=== PATIENT | male | born 1980 | race Caucasian/White ===

== ENCOUNTER 2017-03-14 12:02 | Emergency (ER) | payer OTHER ==
[~2017-03-14] VITALS: Ht 182.9 cm; Wt 99.8 kg
[~2017-03-14 12:02] MED LIST: INSU100C4 SUBCUT; INSU100V10 SQ; LISI10TA5 PO; METF850T2 PO
[2017-03-14] MEDS ORDERED: ATOR20TA PO (12:17)
[2017-03-14] MEDS ORDERED: INSU100V10 SQ (12:17)
[2017-03-14] MEDS ORDERED: RIVA10TA PO (12:17)
[2017-03-14] MEDS ORDERED: INSU100I4 SQ (12:17)
--- NOTE | 2017-03-14 12:33 | NUR ---
PT WAS EVALUATED BY DR MACHADO. PT WAS D/C TO HOME. D/C INSTRUCTIONS GIVEN TO THE PT. NO S/S OF ACUTE DISTRESS AT THE TIME OF DISCHARGE..
[2017-03-14 12:36] VITALS: BP 124/81
== END 2017-03-14 12:37 | disposition home or self-care (01) ==
LOC: ER 12:02
DX: S01.21XA Laceration without foreign body of nose, initial encounter (principal); I10 Essential (primary) hypertension; E11.9 Type 2 diabetes mellitus without complications; Z79.01 Long term (current) use of anticoagulants; Z88.0 Allergy status to penicillin; Z88.6 Allergy status to analgesic agent; Z88.8 Allergy status to other drugs, medicaments and biological substances; Z79.4 Long term (current) use of insulin; W18.30XA Fall on same level, unspecified, initial encounter; Y93.89 Activity, other specified; Y99.8 Other external cause status; Y92.89 Other specified places as the place of occurrence of the external cause
CPT/HCPCS: 12011; 99283; A4663

== ENCOUNTER 2017-05-19 00:46 | Emergency (ER) | payer BC, OTHER ==
[~2017-05-19] VITALS: Ht 182.9 cm; Wt 97.5 kg
[~2017-05-19 00:46] MED LIST changes: +ATOR20TA PO; +INSU100I4 SQ; +RIVA10TA PO
--- NOTE | 2017-05-19 01:15 | NUR ---
Pt biba for severe LLQ abd pain with N/V. Pt has significant medical history including multiple surgeries to the abd. Pt has continous medication pump for pain management of chronic diagnosis'. Refer to triage note for further medical history. Pt has noted scare to R side of abd. Hypoactive bowel sounds, abd tender to palpation LLQ. Pt ST on the monitor and diaphortic. Pt sts he is currently being treated for a PE and DVT. Lungs CTA, resp even and unlabored. LLE with DVT tender to palpation. Dr. Dewey at bedside for MSE, awaiting further orders.
[2017-05-19] MEDS ORDERED: ENOX40DI SQ (01:20)
[2017-05-19] MEDS ORDERED: LIRA0.6P2 SQ (01:20)
[2017-05-19] MEDS ORDERED: ATOR40TA PO (01:20)
[2017-05-19] MEDS ORDERED: HYDROMORPHONE 1 MG/1 ML DISP.SYRIN IV ONE ×2 (01:30→03:45)
[2017-05-19] MEDS ORDERED: ONDANSETRON IV *ER 4 MG/2 ML VIAL IV ONE (01:30)
[2017-05-19 01:49] LABS: BASOPHILS % (AUTO) 0.7 % (0.0-2.0); EOSINOPHILS # (AUTO) 0.1 K/uL (0.0-0.7); EOSINOPHILS % (AUTO) 0.8 % (0.0-7.0); HEMOGLOBIN 15.4 G/DL (14.0-18.0); LYMPHOCYTES # (AUTO) 2.2 K/UL (0.8-4.8); LYMPHOCYTES % (AUTO) 33.6 % (20.5-51.5); MEAN CORPUSCULAR HEMOGLOBIN 28.8 UUG (27.0-31.0); MEAN CORPUSCULAR HGB CONC 33 g/dL (32.0-37.0); MEAN CORPUSCULAR VOLUME 86.2 FL (82.0-92.0); MONOCYTES # (AUTO) 0.5 K/UL (0.1-1.30); MONOCYTES % (AUTO) 8.5 % (0.0-11.0); NEUTROPHILS # (AUTO) 3.6 K/UL (1.8-8.9); NEUTROPHILS % (AUTO) 56.4 % (38.5-71.5); PLATELET COUNT (AUTO) 265 K/UL (150-450); RED BLOOD CELL COUNT(AUTO) 5.34 MIL/UL (4.7-6.1); WHITE BLOOD COUNT (AUTO) 6.4 K/UL (4.0-11.2)
[2017-05-19] MEDS ORDERED: HYDROMORPHONE 1 MG/1 ML DISP.SYRIN ONE ×2 (01:54→04:06)
[2017-05-19] MEDS ORDERED: ONDANSETRON 4 MG/2 ML VIAL ONE (01:54)
[2017-05-19] MEDS ORDERED: diphenhydrAMINE 50 MG/1 ML VIAL IV ONE (02:00)
--- NOTE | 2017-05-19 02:08 | NUR ---
Pt seen by MD. SLOAN established, labs drawn and sent. Pt medicated for discomfort, will monitor for effects of medication. Pt resting in position of comfort for self.
[2017-05-19] MEDS ORDERED: diphenhydrAMINE 50 MG/1 ML VIAL ONE (02:11)
[2017-05-19 02:16] LABS: BILIRUBIN,DIRECT 0.1 mg/dL (0.0-0.2); BILIRUBIN,TOTAL 0.5 mg/dL (0.2-1.0); CREATININE 0.9 mg/dL (0.6-1.3); POTASSIUM 4.3 mmol/L (3.5-5.1); TOTAL PROTEIN, SERUM 7.5 g/dL (6.4-8.2)
--- NOTE | 2017-05-19 02:45 | NUR ---
Pt requested more pain medication, sts no change with previous dose. Dr. Dewey notified. Pt to CT via w/c
--- NOTE | 2017-05-19 02:58 | NUR ---
Pt returned from CT via w/c. Pt repositioned for comfort. Requesting to speak with Dr. Dewey. Dr. Dewey notified.
--- NOTE | 2017-05-19 03:36 | NUR ---
Dr. Dewey at bedside speaking with pt
--- NOTE | 2017-05-19 04:10 | NUR ---
Pt medicated for discomfort, with little relief. Pt stable for discharge per MD. IV dc'd, catheter intact, drsg applied. No problems noted to site. Pt given ACI. Pt verbalized understanding of dc instructions. Pt ambulated out of er with steady gait to wait for ride home.
[2017-05-19 05:26] VITALS: BP 118/57
== END 2017-05-19 04:10 | disposition home or self-care (01) ==
LOC: ER 00:51
DX: R10.9 Unspecified abdominal pain (principal); E11.65 Type 2 diabetes mellitus with hyperglycemia; I10 Essential (primary) hypertension; Z86.718 Personal history of other venous thrombosis and embolism; Z79.4 Long term (current) use of insulin; Z88.0 Allergy status to penicillin; Z88.6 Allergy status to analgesic agent; E78.5 Hyperlipidemia, unspecified
CPT/HCPCS: 36415; 74176; 80048; 80076; 83690; 85025; 96374; 96375; 96376; 99285; A4663; J1170 ×2; J1200; J2405; J7040

== ENCOUNTER 2017-07-10 18:19 | Emergency (ER) | payer BC ==
[~2017-07-10] VITALS: Ht 182.9 cm; Wt 102.5 kg
[~2017-07-10 18:19] MED LIST changes: -ATOR20TA PO; +ATOR40TA PO; +ENOX40DI SQ; -INSU100I4 SQ; -INSU100V10 SQ; +LIRA0.6P2 SQ; -METF850T2 PO; -RIVA10TA PO
[2017-07-10] MEDS ORDERED: INSU100I24 SQ (19:12)
[2017-07-10 19:27] LABS: BASOPHILS % (AUTO) 0.6 % (0.0-2.0); EOSINOPHILS % (AUTO) 0.6 % (0.0-7.0); HEMATOCRIT 46.6 % (40-50); HEMOGLOBIN 15.6 G/DL (14.0-18.0); LYMPHOCYTES # (AUTO) 2.7 K/UL (0.8-4.8); LYMPHOCYTES % (AUTO) 45.1 % (20.5-51.5); MEAN CORPUSCULAR HEMOGLOBIN 28.5 UUG (27.0-31.0); MEAN CORPUSCULAR HGB CONC 34 g/dL (32.0-37.0); MEAN CORPUSCULAR VOLUME 84.8 FL (82.0-92.0); MONOCYTES # (AUTO) 0.6 K/UL (0.1-1.30); NEUTROPHILS # (AUTO) 2.5 K/UL (1.8-8.9); NEUTROPHILS % (AUTO) 43.7 % (38.5-71.5); PLATELET COUNT (AUTO) 295 K/UL (150-450); RED BLOOD CELL COUNT(AUTO) 5.49 MIL/UL (4.7-6.1); WHITE BLOOD COUNT (AUTO) 5.8 K/UL (4.0-11.2)
[2017-07-10 19:41] LABS: CREATININE 0.7 mg/dL (0.6-1.3)
[2017-07-10 19:53] LABS: BILIRUBIN,DIRECT 0.1 mg/dL (0.0-0.2); BILIRUBIN,TOTAL 0.6 mg/dL (0.2-1.0); TOTAL PROTEIN, SERUM 7.8 g/dL (6.4-8.2)
[2017-07-10 20:52] VITALS: BP 135/87
== END 2017-07-10 20:53 | disposition home or self-care (01) ==
LOC: ER 18:20
DX: K51.90 Ulcerative colitis, unspecified, without complications (principal); E11.65 Type 2 diabetes mellitus with hyperglycemia; I10 Essential (primary) hypertension; E78.5 Hyperlipidemia, unspecified; Z88.0 Allergy status to penicillin; Z86.718 Personal history of other venous thrombosis and embolism; Z79.01 Long term (current) use of anticoagulants; G89.4 Chronic pain syndrome; Z79.4 Long term (current) use of insulin
CPT/HCPCS: 36415; 83605; 83690; 85025; 85651; 86140; 87040; A4663; J1170; J2405; J7030; Q0163

== ENCOUNTER 2017-07-12 18:41 | Emergency (ER) | payer BC ==
[~2017-07-12] VITALS: Ht 182.9 cm; Wt 103.4 kg
[~2017-07-12 18:41] MED LIST changes: +INSU100I24 SQ
[2017-07-12 20:50] LABS: BASOPHILS % (AUTO) 0.3 % (0.0-2.0); EOSINOPHILS % (AUTO) 0.4 % (0.0-7.0); HEMATOCRIT 47.8 % (40-50); HEMOGLOBIN 16.2 G/DL (14.0-18.0); LYMPHOCYTES # (AUTO) 1.8 K/UL (0.8-4.8); LYMPHOCYTES % (AUTO) 19.9 % (20.5-51.5); MEAN CORPUSCULAR HEMOGLOBIN 28.9 UUG (27.0-31.0); MEAN CORPUSCULAR HGB CONC 34 g/dL (32.0-37.0); MONOCYTES # (AUTO) 0.6 K/UL (0.1-1.30); MONOCYTES % (AUTO) 6.9 % (0.0-11.0); NEUTROPHILS # (AUTO) 6.5 K/UL (1.8-8.9); NEUTROPHILS % (AUTO) 72.5 % (38.5-71.5); PLATELET COUNT (AUTO) 276 K/UL (150-450); RED BLOOD CELL COUNT(AUTO) 5.62 MIL/UL (4.7-6.1); WHITE BLOOD COUNT (AUTO) 8.9 K/UL (4.0-11.2)
[2017-07-12 20:55] LABS: CREATININE 0.8 mg/dL (0.6-1.3); POTASSIUM 3.4 mmol/L (3.5-5.1)
[2017-07-12 21:01] LABS: BILIRUBIN,DIRECT 0.1 mg/dL (0.0-0.2); BILIRUBIN,TOTAL 0.5 mg/dL (0.2-1.0); TOTAL PROTEIN, SERUM 8.3 g/dL (6.4-8.2)
--- NOTE | 2017-07-12 23:35 | NUR ---
Patient requested to be discharge. States "I feel alot better now."
--- NOTE | 2017-07-12 23:50 | NUR ---
Patient D/C'ed home. ERMD gave verbal ACI. Answered all question
[2017-07-13 00:13] VITALS: BP 142/65
[2017-07-13] MEDS ORDERED: HYDR8TAB2 PO (19:07)
== END 2017-07-13 00:01 | disposition home or self-care (01) ==
LOC: ER 18:42
DX: G89.4 Chronic pain syndrome (principal); K51.90 Ulcerative colitis, unspecified, without complications; F11.20 Opioid dependence, uncomplicated; I10 Essential (primary) hypertension; E11.9 Type 2 diabetes mellitus without complications; Z79.4 Long term (current) use of insulin; Z88.0 Allergy status to penicillin; Z86.718 Personal history of other venous thrombosis and embolism
CPT/HCPCS: 36415; 70030-TC; 71010; 83690; 85025; 93005; A4663; J1170; J1200; J2405; J3490; J7042; J7050; Q9967

== ENCOUNTER 2017-07-13 18:26 | Emergency (ER) | payer BC ==
[~2017-07-13] VITALS: Ht 190.5 cm; Wt 101.2 kg
[2017-07-13] MEDS ORDERED: HYDR8TAB2 PO (19:07)
[2017-07-13 20:10] LABS: *BILIRUBIN,URIN NEGATIVE (NEGATIVE); *BLOOD, URINE NEGATIVE (NEGATIVE); *CLARITY,URINE CLEAR (CLEAR); *COLOR,URINE YELLOW (YELLOW); *KETONES,URINE NEGATIVE (NEGATIVE); *PROTEIN,URINE NEGATIVE (NEGATIVE); *UROBILINOGEN,URINE 0.2 E.U./dl (NORMAL); LEUKOCYTE ESTERASE ,URINE NEGATIVE (NEGATIVE); NITRITE, URINE NEGATIVE (NEGATIVE)
[2017-07-13 20:15] LABS: SQUAMOUS EPITHELIAL CELL,UR FEW /HPF (NONE SEEN); UGLUCOSE 2+ (NEGATIVE); WBC,URINE 0-3 /HPF (0-3)
--- NOTE | 2017-07-13 20:27 | NUR ---
Patient discharged to home in stable conditon. Written and verbal after care instructions given. Patient verbalizes understanding of instructions.
[2017-07-13 20:29] VITALS: BP 142/86
== END 2017-07-13 20:30 | disposition home or self-care (01) ==
LOC: ER 18:27
DX: K51.90 Ulcerative colitis, unspecified, without complications (principal); I10 Essential (primary) hypertension; E11.9 Type 2 diabetes mellitus without complications; Z88.0 Allergy status to penicillin; Z79.4 Long term (current) use of insulin; F11.20 Opioid dependence, uncomplicated; Z86.718 Personal history of other venous thrombosis and embolism
CPT/HCPCS: A4663; Q0162

== ENCOUNTER 2017-07-24 16:06 | Emergency (ER) | payer BC ==
[~2017-07-24] VITALS: Ht 188 cm; Wt 99.8 kg
[~2017-07-24 16:06] MED LIST changes: +HYDR8TAB2 PO
[2017-07-24] MEDS ORDERED: CIPR-262 PO (17:26)
[2017-07-24] MEDS ORDERED: METR500T PO (17:26)
--- NOTE | 2017-07-24 18:19 | NUR ---
PT AWAITING FOR MD DIAS
[2017-07-24] MEDS ORDERED: ONDANSETRON 4 MG/2 ML VIAL IV ONE (18:30)
[2017-07-24] MEDS ORDERED: IV NORMAL SALINE 1000 ML BAG IV ONE (18:30)
[2017-07-24] MEDS ORDERED: HYDROMORPHONE 1 MG/1 ML DISP.SYRIN IV ONE ×3 (18:30→21:00)
[2017-07-24] MEDS ORDERED: HYDROMORPHONE 2 MG/1 ML DISP.SYRIN ONE ×3 (18:40→21:07)
[2017-07-24] MEDS ORDERED: ONDANSETRON 4 MG/2 ML VIAL ONE ×3 (18:40→21:07)
[2017-07-24] MEDS ORDERED: diphenhydrAMINE 50 MG/1 ML VIAL IV ONE ×2 (18:45→19:30)
--- NOTE | 2017-07-24 18:45 | NUR ---
CXR/MEDS ADMINISTERED, 1L 0.9NS INFUSING. PT POSITIONED FORM COMFORT.
[2017-07-24] MEDS ORDERED: diphenhydrAMINE 50 MG/1 ML VIAL ONE ×2 (18:51→19:42)
--- NOTE | 2017-07-24 19:05 | NUR ---
[facility] THE BLOOD IV PLACED/MEDS ADMINISTERED/EKG DONE/CXR DONE. SBAR REPORT TO PM SHIFT.
--- NOTE | 2017-07-24 19:11 | NUR ---
SBAR REPORT TO DIANA HARRINGTON.
[2017-07-24] MEDS ORDERED: ONDANSETRON IV *ER 4 MG/2 ML VIAL IV ONE ×2 (19:15→21:00)
[2017-07-24 19:19] LABS: BILIRUBIN,DIRECT 0.2 mg/dL (0.0-0.2); BILIRUBIN,TOTAL 0.9 mg/dL (0.2-1.0); CREATININE 0.8 mg/dL (0.6-1.3); POTASSIUM 4.2 mmol/L (3.5-5.1); TOTAL PROTEIN, SERUM 8.3 g/dL (6.4-8.2)
[2017-07-24] MEDS ORDERED: INSULIN REGULAR, HUMAN 1,000 UNITS/10 ML VIAL IV ONE (19:45)
[2017-07-24 19:53] LABS: BASOPHILS # (AUTO) 0.1 K/uL (0.0-8.0); BASOPHILS % (AUTO) 1.3 % (0.0-2.0); EOSINOPHILS # (AUTO) 0.1 K/uL (0.0-0.7); EOSINOPHILS % (AUTO) 0.6 % (0.0-7.0); HEMATOCRIT 50.5 % (40-50); HEMOGLOBIN 16.4 G/DL (14.0-18.0); LYMPHOCYTES # (AUTO) 3.5 K/UL (0.8-4.8); LYMPHOCYTES % (AUTO) 40.3 % (20.5-51.5); MEAN CORPUSCULAR HEMOGLOBIN 27.6 UUG (27.0-31.0); MEAN CORPUSCULAR HGB CONC 33 g/dL (32.0-37.0); MONOCYTES # (AUTO) 0.7 K/UL (0.1-1.30); MONOCYTES % (AUTO) 7.7 % (0.0-11.0); NEUTROPHILS # (AUTO) 4.2 K/UL (1.8-8.9); NEUTROPHILS % (AUTO) 50.1 % (38.5-71.5); RED BLOOD CELL COUNT(AUTO) 5.95 MIL/UL (4.7-6.1); WHITE BLOOD COUNT (AUTO) 8.6 K/UL (4.0-11.2)
[2017-07-24 19:54] LABS: PLATELET COUNT (AUTO) 185 K/UL (150-450)
[2017-07-24 19:55] LABS: BAND % (MANUAL) 2 % (0-10); LYMPHOCYTES % (MANUAL) 33 % (20-40); MONOCYTES % (MANUAL) 10 % (2-10); NEUTROPHILS % (MANUAL) 55 % (42-75)
[2017-07-24] MEDS ORDERED: INSULIN REGULAR, HUMAN 300 UNIT/3 ML VIAL ONE (19:56)
--- NOTE | 2017-07-24 19:59 | NUR ---
Patient tolerated dinner with no N/V
--- NOTE | 2017-07-24 21:11 | NUR ---
right wrist hep lock infiltrated.IV removed. Catheter intact and site benign. Pressure and 4x4 gauze applied to site. No bleeding noted.
--- NOTE | 2017-07-24 21:34 | NUR ---
IV removed on left arm. Catheter intact and site benign. Pressure and 4x4 gauze applied to site. No bleeding noted.
[2017-07-24 21:35] VITALS: BP 129/88
--- NOTE | 2017-07-24 21:36 | NUR ---
Patient requesting to be D/C'ed. Pain is 3/10. Ok to Blood sugar to be managed at home
--- NOTE | 2017-07-24 21:39 | NUR ---
Patient discharged to home in stable conditon. Written and verbal after care instructions given. Patient verbalizes understanding of instructions. Walked out of ER with steady gait no distress noted
[2017-07-24 21:47] LABS: *BILIRUBIN,URIN NEGATIVE (NEGATIVE); *BLOOD, URINE NEGATIVE (NEGATIVE); *CLARITY,URINE CLEAR (CLEAR); *COLOR,URINE YELLOW (YELLOW); *KETONES,URINE 1+ (NEGATIVE); *PROTEIN,URINE NEGATIVE (NEGATIVE); *UROBILINOGEN,URINE 0.2 E.U./dl (NORMAL); LEUKOCYTE ESTERASE ,URINE NEGATIVE (NEGATIVE); NITRITE, URINE NEGATIVE (NEGATIVE); PH,URINE 5.5 (5.0-8.0); UGLUCOSE 2+ (NEGATIVE)
[2017-07-24 21:57] LABS: BACTERIA,URINE FEW /HPF (NONE SEEN); RBC,URINE NONE SEEN /HPF (0-3); SQUAMOUS EPITHELIAL CELL,UR NONE SEEN /HPF (NONE SEEN); WBC,URINE 0-3 /HPF (0-3)
== END 2017-07-24 21:40 | disposition home or self-care (01) ==
LOC: ER 16:08
DX: G89.4 Chronic pain syndrome (principal); K51.90 Ulcerative colitis, unspecified, without complications; I10 Essential (primary) hypertension; E11.9 Type 2 diabetes mellitus without complications; Z86.718 Personal history of other venous thrombosis and embolism; Z79.4 Long term (current) use of insulin; Z88.0 Allergy status to penicillin
CPT/HCPCS: 36415; 70030-TC; 71010; 83690; 85025; 93005; A4663; J1170; J1200; J1815; J2405; J7030

== ENCOUNTER 2017-08-01 22:25 | Emergency (ER) | payer BC ==
[~2017-08-01 22:25] MED LIST changes: +CIPR-262 PO; -HYDR8TAB2 PO; +METR500T PO
--- NOTE | 2017-08-01 23:46 | NUR ---
PATIENT WAS CALLED SEVERAL TIMES IN 1HR SPAN. PATIENT WAS NOT PRESENT. PATIENT WAS NOT SEEN OR TRAIGED
== END 2017-08-01 23:48 | disposition left against medical advice (07) ==
LOC: ER 22:25
DX: Z53.21 Procedure and treatment not carried out due to patient leaving prior to being seen by health care provider (principal)

== ENCOUNTER 2017-08-30 09:11 | Emergency (ER) | payer BC ==
[~2017-08-30] VITALS: Ht 182.9 cm; Wt 103.4 kg
[2017-08-30] MEDS ORDERED: ONDANSETRON 4 MG/2 ML VIAL IV ONE (09:15)
[2017-08-30] MEDS ORDERED: HYDROMORPHONE 1 MG/1 ML DISP.SYRIN IV ONE ×2 (09:15→11:00)
--- NOTE | 2017-08-30 09:20 | NUR ---
PT WAS SEEN BY WITH NEW ORDERS.
--- NOTE | 2017-08-30 09:52 | NUR ---
PT STATES HE TOOK UBER MODE OF TRANSPORTATION
[2017-08-30] MEDS ORDERED: ONDANSETRON 4 MG/2 ML VIAL ONE (09:56)
[2017-08-30] MEDS ORDERED: HYDROMORPHONE 2 MG/1 ML DISP.SYRIN ONE ×2 (09:56→11:15)
[2017-08-30 10:00] LABS: BASOPHILS % (AUTO) 0.6 % (0.0-2.0); EOSINOPHILS % (AUTO) 0.6 % (0.0-7.0); HEMATOCRIT 44.7 % (36.7-47.1); HEMOGLOBIN 15.2 g/dL (12.5-16.3); LYMPHOCYTES # (AUTO) 1.8 K/uL (20.0-40.0); LYMPHOCYTES % (AUTO) 37.5 % (20.5-51.5); MEAN CORPUSCULAR HEMOGLOBIN 28.9 uug (23.8-33.4); MEAN CORPUSCULAR HGB CONC 34 g/dL (32.5-36.3); MEAN CORPUSCULAR VOLUME 84.7 fL (73.0-96.2); MONOCYTES # (AUTO) 0.4 K/uL (2.0-10.0); MONOCYTES % (AUTO) 7.7 % (0.0-11.0); NEUTROPHILS # (AUTO) 2.6 K/uL (1.8-8.9); NEUTROPHILS % (AUTO) 53.6 % (38.5-71.5); PLATELET COUNT (AUTO) 250 K/uL (152-348); RED BLOOD CELL COUNT(AUTO) 5.28 MIL/uL (4.06-5.63); WHITE BLOOD COUNT (AUTO) 4.9 K/uL (3.6-10.2)
[2017-08-30] MEDS ORDERED: diphenhydrAMINE 50 MG CAPSULE PO ONE (10:00)
[2017-08-30] MEDS ORDERED: diphenhydrAMINE 50 MG/1 ML VIAL IM ONE (10:00)
--- NOTE | 2017-08-30 10:03 | NUR ---
IV DILAUDID AND PO BENADRIL GIVEN PT.WAS INSTRACTED NOT TO DRIVE.
[2017-08-30 10:05] LABS: CREATININE 0.7 mg/dL (0.6-1.3); POTASSIUM 4.2 mmol/L (3.5-5.1)
[2017-08-30 10:11] LABS: BILIRUBIN,DIRECT 0.1 mg/dL (0.0-0.2); BILIRUBIN,TOTAL 0.5 mg/dL (0.2-1.0); TOTAL PROTEIN, SERUM 7.4 g/dL (6.4-8.2)
[2017-08-30] MEDS ORDERED: diphenhydrAMINE 50 MG CAPSULE ONE (10:13)
[2017-08-30] MEDS ORDERED: INSULIN REGULAR, HUMAN 1,000 UNITS/10 ML VIAL SUBCUT ONE (10:45)
[2017-08-30] MEDS ORDERED: INSULIN REGULAR, HUMAN 300 UNIT/3 ML VIAL ONE (11:06)
--- NOTE | 2017-08-30 11:24 | NUR ---
PT ASK FOR SNACKS,PROVIDED,NO S/S OF DISTRESS.
[2017-08-30 11:46] VITALS: BP 122/84
== END 2017-08-30 11:50 | disposition home or self-care (01) ==
LOC: ER 09:11
DX: G89.29 Other chronic pain (principal); R10.32 Left lower quadrant pain; F11.20 Opioid dependence, uncomplicated; E11.9 Type 2 diabetes mellitus without complications; I10 Essential (primary) hypertension; K51.90 Ulcerative colitis, unspecified, without complications; Z79.4 Long term (current) use of insulin; Z86.718 Personal history of other venous thrombosis and embolism; Z88.0 Allergy status to penicillin; Z88.5 Allergy status to narcotic agent; Z90.49 Acquired absence of other specified parts of digestive tract
CPT/HCPCS: 36415; 80048; 80076; 83690; 85025; 85651; 86140; 96372; 96374; 96375; 96376; 99284; A4663; J1170 ×2; J1815; J2405; J7030; Q0163

== ENCOUNTER 2017-10-20 00:31 | Emergency (ER) | payer BC ==
[~2017-10-20] VITALS: Ht 182.9 cm; Wt 103.4 kg
[2017-10-20] MEDS ORDERED: LISINOPRIL 10 MG TABLET (00:48)
[2017-10-20] MEDS ORDERED: IV NORMAL SALINE 1000 ML BAG IV ONE (01:00)
[2017-10-20] MEDS ORDERED: ONDANSETRON 4 MG/2 ML VIAL IV ONE (01:00)
[2017-10-20] MEDS ORDERED: HYDROMORPHONE 1 MG/1 ML DISP.SYRIN IV ONE ×2 (01:00→02:00)
[2017-10-20] MEDS ORDERED: diphenhydrAMINE 50 MG CAPSULE PO ONE (01:15)
[2017-10-20] MEDS ORDERED: ONDANSETRON 4 MG/2 ML VIAL ONE (01:16)
[2017-10-20] MEDS ORDERED: HYDROMORPHONE 1 MG/1 ML DISP.SYRIN ONE ×2 (01:16→02:05)
[2017-10-20 01:17] LABS: BASOPHILS % (AUTO) 0.4 % (0.0-2.0); EOSINOPHILS % (AUTO) 0.5 % (0.0-7.0); HEMATOCRIT 43.8 % (36.7-47.1); HEMOGLOBIN 15.1 g/dL (12.5-16.3); LYMPHOCYTES # (AUTO) 1.4 K/uL (20.0-40.0); LYMPHOCYTES % (AUTO) 23.3 % (20.5-51.5); MEAN CORPUSCULAR HEMOGLOBIN 29.7 uug (23.8-33.4); MEAN CORPUSCULAR HGB CONC 35 g/dL (32.5-36.3); MEAN CORPUSCULAR VOLUME 86.1 fL (73.0-96.2); MONOCYTES # (AUTO) 0.4 K/uL (2.0-10.0); MONOCYTES % (AUTO) 6.7 % (0.0-11.0); NEUTROPHILS # (AUTO) 4.1 K/uL (1.8-8.9); NEUTROPHILS % (AUTO) 69.1 % (38.5-71.5); PLATELET COUNT (AUTO) 238 K/uL (152-348); RED BLOOD CELL COUNT(AUTO) 5.09 MIL/uL (4.06-5.63)
[2017-10-20] MEDS ORDERED: diphenhydrAMINE 25 MG CAP PO ONE (01:28)
[2017-10-20 01:35] LABS: BILIRUBIN,DIRECT 0.1 mg/dL (0.0-0.2); BILIRUBIN,TOTAL 0.4 mg/dL (0.2-1.0); TOTAL PROTEIN, SERUM 8.4 g/dL (6.4-8.2)
[2017-10-20] MEDS ORDERED: INSULIN REGULAR, HUMAN 1,000 UNITS/10 ML VIAL SUBCUT ONE (02:30)
[2017-10-20] MEDS ORDERED: INSULIN REGULAR, HUMAN 300 UNIT/3 ML VIAL ONE (02:45)
--- NOTE | 2017-10-20 02:52 | NUR ---
Patient discharged to home in stable conditon. Written and verbal after care instructions given. Patient verbalizes understanding of instructions. PATIENT LEFT WITH STABLE GAIT, ACCOMPANIED BY FIANCE. PATIENT STATES FIANCE WILL DRIVE.
[2017-10-20 02:53] VITALS: BP 148/91
== END 2017-10-20 02:55 | disposition home or self-care (01) ==
LOC: ER 00:33
DX: G89.4 Chronic pain syndrome (principal); K51.90 Ulcerative colitis, unspecified, without complications; E11.65 Type 2 diabetes mellitus with hyperglycemia; I10 Essential (primary) hypertension; Z79.4 Long term (current) use of insulin; Z86.718 Personal history of other venous thrombosis and embolism; Z88.0 Allergy status to penicillin; Z88.5 Allergy status to narcotic agent
CPT/HCPCS: 36415; 80048; 80076; 83690; 85025; 96361; 96372; 96374; 96375; 96376; 99284; A4663; J1170 ×2; J1815; J2405; J7030; Q0163

== ENCOUNTER 2017-11-02 02:01 | Emergency (ER) | payer BC ==
[~2017-11-02] VITALS: Ht 182.9 cm; Wt 103.0 kg
[~2017-11-02 02:01] MED LIST changes: -CIPR-262 PO; +LISINOPRIL 10 MG TABLET; -METR500T PO
--- NOTE | 2017-11-02 02:18 | NUR ---
Pt c/o LUQ and LLQ pain and tenderness, cramping, 7-8, along with n/v since yesterday AM. Pt denies CP, SOB, dizziness, no other complaints, no distress noted.
--- NOTE | 2017-11-02 02:26 | NUR ---
Pt left after seeing MD. Menjivar.
== END 2017-11-02 02:29 | disposition left against medical advice (07) ==
LOC: ER 02:03
DX: R10.9 Unspecified abdominal pain (principal); R11.10 Vomiting, unspecified; Z79.4 Long term (current) use of insulin; Z88.0 Allergy status to penicillin; Z88.5 Allergy status to narcotic agent; E11.9 Type 2 diabetes mellitus without complications; I10 Essential (primary) hypertension; Z86.718 Personal history of other venous thrombosis and embolism; Z90.49 Acquired absence of other specified parts of digestive tract
CPT/HCPCS: A4663

== ENCOUNTER 2017-12-19 20:53 | Emergency (ER) | payer BC ==
[~2017-12-19] VITALS: Ht 182.9 cm; Wt 105.7 kg
[2017-12-19] MEDS ORDERED: TRESIBA SQ (21:11)
[2017-12-19] MEDS ORDERED: HUM100IN SQ (21:11)
[2017-12-19] MEDS ORDERED: VICTOZA SQ (21:11)
[2017-12-19] MEDS ORDERED: LISI10TA5 PO (21:11)
[2017-12-19] MEDS ORDERED: ENOX40DI SQ (21:11)
[2017-12-19 22:05] LABS: BASOPHILS % (AUTO) 0.7 % (0.0-2.0); HEMOGLOBIN 15.6 g/dL (12.5-16.3); LYMPHOCYTES % (AUTO) 43.2 % (20.5-51.5); MEAN CORPUSCULAR HEMOGLOBIN 29.4 uug (23.8-33.4); MEAN CORPUSCULAR HGB CONC 35 g/dL (32.5-36.3); MEAN CORPUSCULAR VOLUME 84.6 fL (73.0-96.2); MONOCYTES # (AUTO) 0.4 K/uL (2.0-10.0); MONOCYTES % (AUTO) 8.4 % (0.0-11.0); NEUTROPHILS # (AUTO) 2.1 K/uL (1.8-8.9); NEUTROPHILS % (AUTO) 46.7 % (38.5-71.5); PLATELET COUNT (AUTO) 233 K/uL (152-348); RED BLOOD CELL COUNT(AUTO) 5.32 MIL/uL (4.06-5.63); WHITE BLOOD COUNT (AUTO) 4.5 K/uL (3.6-10.2)
[2017-12-19 22:16] LABS: POTASSIUM 4.2 mmol/L (3.5-5.1)
[2017-12-19 22:33] LABS: BILIRUBIN,DIRECT 0.1 mg/dL (0.0-0.2); BILIRUBIN,TOTAL 0.4 mg/dL (0.2-1.0)
[2017-12-19] MEDS ORDERED: IOHEXOL 350 100 ML INFUS..BTL ONE (22:33)
[2017-12-19] MEDS ORDERED: NORMAL SALINE FLUSH 10 ML DISP.SYRIN ONE (22:33)
[2017-12-19] MEDS ORDERED: IV NORMAL SALINE 100 ML ONE (22:33)
[2017-12-19] MEDS: IV NORMAL SALINE 1000 ML BAG IV ONE (22:45)
[2017-12-19] MEDS ORDERED: DEXAMETHASONE SOD PHOSPHATE 4 MG INJ ONE (22:48)
[2017-12-19] MEDS ORDERED: diphenhydrAMINE 50 MG/1 ML VIAL ONE (22:48)
[2017-12-19] MEDS: DEXAMETHASONE SOD PHOSPHATE 4 MG INJ IV ONE (22:53)
[2017-12-19] MEDS: diphenhydrAMINE 50 MG/1 ML VIAL IV ONE (22:54)
--- NOTE | 2017-12-19 22:55 | NUR ---
PT IN ROUTE TO CT
[2017-12-20] MEDS ORDERED: HYDROMORPHONE 1 MG/1 ML DISP.SYRIN IV ONE (00:45)
[2017-12-20] MEDS ORDERED: ONDANSETRON 4 MG/2 ML VIAL ONE (00:46)
[2017-12-20] MEDS ORDERED: HYDROMORPHONE 4 MG/1 ML DISP.SYRIN ONE (00:48)
[2017-12-20] MEDS: ONDANSETRON IV *ER 4 MG/2 ML VIAL IV ONE (01:01)
[2017-12-20] MEDS: HYDROMORPHONE 1 MG/1 ML DISP.SYRIN IV ONE (01:02)
--- NOTE | 2017-12-20 01:04 | NUR ---
Patient discharged to home in stable conditon. Written and verbal after care instructions given. Patient verbalizes understanding of instructions.
== END 2017-12-20 01:05 | disposition home or self-care (01) ==
LOC: ER 20:55
DX: R07.89 Other chest pain (principal); G89.4 Chronic pain syndrome; F11.23 Opioid dependence with withdrawal; I10 Essential (primary) hypertension; Z90.49 Acquired absence of other specified parts of digestive tract; Z88.0 Allergy status to penicillin; Z88.1 Allergy status to other antibiotic agents; Z88.5 Allergy status to narcotic agent; Z88.8 Allergy status to other drugs, medicaments and biological substances; Z79.4 Long term (current) use of insulin; Z79.899 Other long term (current) drug therapy
CPT/HCPCS: 36415; 70030-TC; 71275; 85025; 85730; 93005; A4663; J1100; J1170; J1200; J2405; J3490; J7030; Q9967

== ENCOUNTER 2018-02-22 15:54 | Emergency (ER) | payer BC ==
[~2018-02-22] VITALS: Ht 182.9 cm; Wt 106.6 kg
[~2018-02-22 15:54] MED LIST changes: +HUM100IN SQ; -INSU100C4 SUBCUT; -INSU100I24 SQ; -LISINOPRIL 10 MG TABLET; +TRESIBA SQ
--- NOTE | 2018-02-22 16:08 | NUR ---
Shashank zhu in [facility] - 02/22/18 at 1608 by SEAN is at bedside doing his MSE.
[2018-02-22] MEDS ORDERED: DULA0.75 SQ (16:12)
[2018-02-22] MEDS ORDERED: IV NORMAL SALINE 1000 ML BAG IV ONE (17:45)
[2018-02-22] MEDS ORDERED: HYDROMORPHONE 1 MG/1 ML DISP.SYRIN IV ONE (17:45)
[2018-02-22] MEDS ORDERED: ONDANSETRON 4 MG/2 ML VIAL IV ONE (17:45)
[2018-02-22] MEDS ORDERED: HYDROMORPHONE 2 MG/1 ML DISP.SYRIN ONE (17:53)
[2018-02-22] MEDS ORDERED: ONDANSETRON 4 MG/2 ML VIAL ONE (17:53)
[2018-02-22 18:20] LABS: BASOPHILS % (AUTO) 0.7 % (0.0-2.0); EOSINOPHILS % (AUTO) 0.5 % (0.0-7.0); HEMATOCRIT 47.1 % (36.7-47.1); HEMOGLOBIN 16.2 g/dL (12.5-16.3); LYMPHOCYTES # (AUTO) 2.4 K/uL (20.0-40.0); LYMPHOCYTES % (AUTO) 37.6 % (20.5-51.5); MEAN CORPUSCULAR HEMOGLOBIN 29.4 uug (23.8-33.4); MEAN CORPUSCULAR HGB CONC 34 g/dL (32.5-36.3); MEAN CORPUSCULAR VOLUME 85.5 fL (73.0-96.2); MONOCYTES # (AUTO) 0.5 K/uL (2.0-10.0); MONOCYTES % (AUTO) 7.2 % (0.0-11.0); NEUTROPHILS # (AUTO) 3.5 K/uL (1.8-8.9); PLATELET COUNT (AUTO) 224 K/uL (152-348); WHITE BLOOD COUNT (AUTO) 6.5 K/uL (3.6-10.2)
[2018-02-22 18:40] LABS: CREATININE 0.7 mg/dL (0.6-1.3)
[2018-02-22 18:44] LABS: BILIRUBIN,DIRECT 0.2 mg/dL (0.0-0.2); BILIRUBIN,TOTAL 0.7 mg/dL (0.2-1.0); TOTAL PROTEIN, SERUM 8.1 g/dL (6.4-8.2)
[2018-02-22] MEDS ORDERED: diphenhydrAMINE 50 MG/1 ML VIAL IV ONE (18:45)
[2018-02-22] MEDS ORDERED: diphenhydrAMINE 50 MG/1 ML VIAL ONE (18:53)
--- NOTE | 2018-02-22 19:07 | NUR ---
REPORT GIVE TO BRENDA HARRINGTON.
--- NOTE | 2018-02-22 19:12 | NUR ---
REPORT TAKEN FROM TIAGO. ASSUMING PT CARE AT THIS TIME.
--- NOTE | 2018-02-22 19:43 | NUR ---
PT REFUSES CT SCAN, AGREES TO CHEST XRAY. XRAY AT PT BEDSIDE.
--- NOTE | 2018-02-22 20:27 | NUR ---
Patient does not wish to proceed with medical care recommended by Dr. PEÑA. Patient given information related to possible complications, up to and including , which could occur as a result of leaving the hospital at this time. Patient verbalizes understanding of risks involved due to leaving against medical advice. Patient has signed AMA form. IV reoved, w/ catheter intact. Pressure applied. No bleeding noted at site. Pt took all personal belonings.
[2018-02-22 20:29] VITALS: BP 146/91
== END 2018-02-22 20:30 | disposition home or self-care (01) ==
LOC: ER 15:55
DX: K51.90 Ulcerative colitis, unspecified, without complications (principal); E11.9 Type 2 diabetes mellitus without complications; G89.29 Other chronic pain; I10 Essential (primary) hypertension; Z79.4 Long term (current) use of insulin; Z88.0 Allergy status to penicillin; Z88.5 Allergy status to narcotic agent; Z90.49 Acquired absence of other specified parts of digestive tract
CPT/HCPCS: 36415; 70030-TC; 71045; 83605; 83690; 85025; 85730; 87040; 93005; A4663; J1170; J1200; J2405; J7030

== ENCOUNTER 2018-04-07 11:00 | Emergency (ER) | payer BC ==
[~2018-04-07] VITALS: Ht 182.9 cm; Wt 106.6 kg
[~2018-04-07 11:00] MED LIST changes: +DULA0.75 SQ
== END 2018-04-07 11:18 | disposition left against medical advice (07) ==
LOC: ER 11:00
DX: Z53.21 Procedure and treatment not carried out due to patient leaving prior to being seen by health care provider (principal)
CPT/HCPCS: A4663

== ENCOUNTER 2019-05-05 12:41 | Emergency (ER) | payer BC ==
[~2019-05-05] VITALS: Ht 182.9 cm; Wt 104.8 kg
--- NOTE | 2019-05-05 13:54 | NUR ---
seen by Dr Iqbal. orders received
[2019-05-05] MEDS ORDERED: ONDANSETRON 4 MG/2 ML VIAL IV ONE (14:00)
[2019-05-05] MEDS ORDERED: HYDROMORPHONE 1 MG/1 ML DISP.SYRIN IV ONE ×2 (14:00→15:45)
[2019-05-05] MEDS ORDERED: IV NORMAL SALINE 1000 ML BAG IV ONE (14:00)
--- NOTE | 2019-05-05 14:58 | NUR ---
ct abdomen done. back to room IV #22 inserted via right hand IV NS started and infused via right hand. blood drawn for labs
[2019-05-05] MEDS ORDERED: diphenhydrAMINE 50 MG/1 ML VIAL IV ONE (15:00)
[2019-05-05] MEDS ORDERED: diphenhydrAMINE 50 MG/1 ML VIAL ONE (15:04)
[2019-05-05] MEDS ORDERED: HYDROMORPHONE 1 MG/1 ML DISP.SYRIN ONE ×2 (15:05→15:55)
[2019-05-05] MEDS ORDERED: ONDANSETRON 4 MG/2 ML VIAL ONE (15:06)
[2019-05-05 15:12] LABS: BASOPHILS % (AUTO) 0.4 % (0.0-2.0); EOSINOPHILS % (AUTO) 0.2 % (0.0-7.0); HEMOGLOBIN 15.1 g/dL (12.5-16.3); LYMPHOCYTES # (AUTO) 1.4 K/uL (20.0-40.0); LYMPHOCYTES % (AUTO) 22.6 % (20.5-51.5); MEAN CORPUSCULAR HEMOGLOBIN 28.4 uug (23.8-33.4); MEAN CORPUSCULAR HGB CONC 33 g/dL (32.5-36.3); MEAN CORPUSCULAR VOLUME 86.4 fL (73.0-96.2); MONOCYTES # (AUTO) 0.4 K/uL (2.0-10.0); MONOCYTES % (AUTO) 5.8 % (0.0-11.0); NEUTROPHILS # (AUTO) 4.3 K/uL (1.8-8.9); PLATELET COUNT (AUTO) 283 K/uL (152-348); RED BLOOD CELL COUNT(AUTO) 5.33 MIL/uL (4.06-5.63)
[2019-05-05 15:46] LABS: CARBON DIOXIDE 24 mmol/L (21-32); CHLORIDE 101 mmol/L (98-107); CREATININE 0.6 mg/dL (0.6-1.3); GLUCOSE 274 mg/dL (74-106); UREA NITROGEN, BLOOD 10 mg/dL (7-18)
--- NOTE | 2019-05-05 15:57 | NUR ---
medicated with 1 mg IV Dilaudid
[2019-05-05 16:02] LABS: ALANINE AMINOTRANSFERASE 19 U/L (16-63); ALKALINE PHOSPHATASE 63 U/L (50-136); ASPARTATE AMINOTRANSFERASE 7 U/L (15-37); BILIRUBIN,DIRECT 0.1 mg/dL (0.0-0.2); BILIRUBIN,TOTAL 0.7 mg/dL (0.2-1.0); TOTAL PROTEIN, SERUM 7.6 g/dL (6.4-8.2)
--- NOTE | 2019-05-05 16:12 | NUR ---
exitcare given. discharged home
[2019-05-05 16:13] VITALS: BP 136/99
[2019-05-05 16:27] LABS: LIPASE 154 U/L (73-393)
== END 2019-05-05 16:17 | disposition home or self-care (01) ==
LOC: ER 12:41
DX: R10.32 Left lower quadrant pain (principal); R11.10 Vomiting, unspecified; I10 Essential (primary) hypertension; E11.9 Type 2 diabetes mellitus without complications; G89.29 Other chronic pain; M54.9 Dorsalgia, unspecified; Z88.0 Allergy status to penicillin; Z88.5 Allergy status to narcotic agent; Z88.8 Allergy status to other drugs, medicaments and biological substances; Z90.49 Acquired absence of other specified parts of digestive tract; Z79.899 Other long term (current) drug therapy
CPT/HCPCS: 36415; 74176; 80048; 80076; 83690; 85025; 96361; 96374; 96375; 96376; 99284; J1170 ×2; J1200; J2405; A4663

== ENCOUNTER 2019-05-13 14:03 | Emergency (ER) | payer BC ==
[~2019-05-13] VITALS: Ht 182.9 cm; Wt 104.8 kg
[2019-05-13] MEDS ORDERED: ONDANSETRON 4 MG/2 ML VIAL ONE (14:35)
[2019-05-13] MEDS ORDERED: HYDROMORPHONE 1 MG/1 ML DISP.SYRIN ONE ×2 (14:35→15:51)
[2019-05-13 14:49] LABS: BASOPHILS % (AUTO) 0.6 % (0.0-2.0); EOSINOPHILS % (AUTO) 0.2 % (0.0-7.0); HEMATOCRIT 44.4 % (36.7-47.1); HEMOGLOBIN 14.5 g/dL (12.5-16.3); LYMPHOCYTES # (AUTO) 1.3 K/uL (20.0-40.0); LYMPHOCYTES % (AUTO) 22.9 % (20.5-51.5); MEAN CORPUSCULAR HEMOGLOBIN 28.5 uug (23.8-33.4); MEAN CORPUSCULAR HGB CONC 33 g/dL (32.5-36.3); MONOCYTES # (AUTO) 0.3 K/uL (2.0-10.0); MONOCYTES % (AUTO) 5.7 % (0.0-11.0); NEUTROPHILS % (AUTO) 70.6 % (38.5-71.5); PLATELET COUNT (AUTO) 253 K/uL (152-348); WHITE BLOOD COUNT (AUTO) 5.7 K/uL (3.6-10.2)
[2019-05-13] MEDS: HYDROMORPHONE 1 MG/1 ML DISP.SYRIN IV ONE ×2 (14:49→15:51)
[2019-05-13] MEDS: IV NORMAL SALINE 1000 ML BAG IV ONE (14:52)
[2019-05-13] MEDS: ONDANSETRON 4 MG/2 ML VIAL IV ONE (14:53)
[2019-05-13] MEDS: diphenhydrAMINE 25 MG CAP PO ONE (14:56)
[2019-05-13] MEDS ORDERED: diphenhydrAMINE 25 MG CAP PO ONE (14:58)
[2019-05-13 15:01] LABS: BILIRUBIN,DIRECT 0.2 mg/dL (0.0-0.2); BILIRUBIN,TOTAL 0.8 mg/dL (0.2-1.0); POTASSIUM 4.5 mmol/L (3.5-5.1); TOTAL PROTEIN, SERUM 7.9 g/dL (6.4-8.2)
--- NOTE | 2019-05-13 15:44 | NUR ---
JIM BASS AT BEDSIDE FOR PT UPDATE.
[2019-05-13] MEDS ORDERED: INSULIN REGULAR, HUMAN 300 UNIT/3 ML VIAL ONE (16:03)
[2019-05-13] MEDS: INSULIN REGULAR, HUMAN 300 UNIT/3 ML VIAL SQ ONE (16:06)
--- NOTE | 2019-05-13 16:10 | NUR ---
Patient discharged to home in stable conditon. Written and verbal after care instructions given. Patient verbalizes understanding of instructions. ALL BELONGINGS W/ PT. PT SELF-AMBULATED W/O DIFFICULTY. 20G IV ACCESS REMOVED PRIOR TO D/C - INNER CANNULA INTACT. PT STATES HE WILL TAKE UBER HOME.
[2019-05-13 16:12] VITALS: BP 112/66
== END 2019-05-13 16:13 | disposition home or self-care (01) ==
LOC: ER 14:03
DX: K51.90 Ulcerative colitis, unspecified, without complications (principal); G89.4 Chronic pain syndrome; R10.32 Left lower quadrant pain; E11.65 Type 2 diabetes mellitus with hyperglycemia; I10 Essential (primary) hypertension; Z88.0 Allergy status to penicillin; Z88.5 Allergy status to narcotic agent; Z88.8 Allergy status to other drugs, medicaments and biological substances; Z79.899 Other long term (current) drug therapy
CPT/HCPCS: 36415; 80048; 80076; 82962; 83690; 85025; 96361; 96372; 96374; 96375; 96376; 99283; J1170 ×2; J1815; J2405; Q0163; A4663; J7030

== ENCOUNTER 2019-06-16 13:54 | Emergency (ER) | payer BC ==
[~2019-06-16] VITALS: Ht 182.9 cm; Wt 104.3 kg
[2019-06-16] MEDS ORDERED: diphenhydrAMINE 50 MG/1 ML VIAL IM ONE (14:30)
[2019-06-16] MEDS ORDERED: ONDANSETRON ODT 4 MG TAB.RAPDIS SL ONE (14:30)
[2019-06-16] MEDS ORDERED: HYDROMORPHONE 1 MG/1 ML DISP.SYRIN IM ONE (14:30)
[2019-06-16] MEDS ORDERED: HYDROMORPHONE 2 MG/1 ML DISP.SYRIN ONE (14:44)
[2019-06-16] MEDS ORDERED: ONDANSETRON ODT 4 MG TAB.RAPDIS ONE (14:44)
[2019-06-16] MEDS ORDERED: diphenhydrAMINE 50 MG/1 ML VIAL ONE (14:44)
[2019-06-16] MEDS ORDERED: DIAZEPAM 5 MG TABLET ONE (15:21)
[2019-06-16] MEDS ORDERED: DIAZEPAM 2 MG TABLET PO ONE (15:30)
--- NOTE | 2019-06-16 15:33 | NUR ---
Patient discharged to home in stable conditon. Written and verbal after care instructions given. Patient verbalizes understanding of instructions. Stressed follow up with pmd.
== END 2019-06-16 15:36 | disposition home or self-care (01) ==
LOC: ER 13:54
DX: G89.4 Chronic pain syndrome (principal); M79.604 Pain in right leg; I10 Essential (primary) hypertension; E11.9 Type 2 diabetes mellitus without complications; Z90.49 Acquired absence of other specified parts of digestive tract; Z88.0 Allergy status to penicillin; Z88.5 Allergy status to narcotic agent; Z88.8 Allergy status to other drugs, medicaments and biological substances; Z79.899 Other long term (current) drug therapy; Z79.4 Long term (current) use of insulin
CPT/HCPCS: 96372 ×2; 99283; J1170; J1200; A4663; Q0162

== ENCOUNTER 2019-06-26 23:34 | Emergency (ER) | payer BC ==
[~2019-06-26] VITALS: Ht 182.9 cm; Wt 106.6 kg
--- NOTE | 2019-06-26 23:59 | NUR ---
PATIENT WAS MSE BY DR RIVERA IN ROOM 03A.
[2019-06-27] MEDS ORDERED: HYDROMORPHONE 1 MG/1 ML DISP.SYRIN IV ONE ×2 (00:30→01:30)
[2019-06-27] MEDS ORDERED: diphenhydrAMINE 50 MG/1 ML VIAL IV ONE (00:30)
[2019-06-27] MEDS ORDERED: diphenhydrAMINE 50 MG/1 ML VIAL ONE (00:55)
[2019-06-27] MEDS ORDERED: HYDROMORPHONE 1 MG/1 ML DISP.SYRIN ONE ×2 (00:55→01:44)
[2019-06-27 00:58] LABS: BASOPHILS % (AUTO) 0.3 % (0.0-2.0); EOSINOPHILS # (AUTO) 0.1 K/uL (0.0-0.7); EOSINOPHILS % (AUTO) 0.7 % (0.0-7.0); HEMATOCRIT 34.2 % (36.7-47.1); HEMOGLOBIN 11.8 g/dL (12.5-16.3); LYMPHOCYTES # (AUTO) 2.3 K/uL (20.0-40.0); LYMPHOCYTES % (AUTO) 31.9 % (20.5-51.5); MEAN CORPUSCULAR HEMOGLOBIN 30.5 uug (23.8-33.4); MEAN CORPUSCULAR HGB CONC 35 g/dL (32.5-36.3); MEAN CORPUSCULAR VOLUME 88.3 fL (73.0-96.2); MONOCYTES # (AUTO) 0.5 K/uL (2.0-10.0); MONOCYTES % (AUTO) 6.3 % (0.0-11.0); NEUTROPHILS # (AUTO) 4.4 K/uL (1.8-8.9); NEUTROPHILS % (AUTO) 60.8 % (38.5-71.5); PLATELET COUNT (AUTO) 258 K/uL (152-348); RED BLOOD CELL COUNT(AUTO) 3.87 MIL/uL (4.06-5.63); WHITE BLOOD COUNT (AUTO) 7.2 K/uL (3.6-10.2)
[2019-06-27 01:12] LABS: BILIRUBIN,DIRECT 0.1 mg/dL (0.0-0.2); BILIRUBIN,TOTAL 0.3 mg/dL (0.2-1.0); CREATININE 1.2 mg/dL (0.6-1.3); POTASSIUM 3.5 mmol/L (3.5-5.1); TOTAL PROTEIN, SERUM 6.8 g/dL (6.4-8.2)
--- NOTE | 2019-06-27 01:50 | NUR ---
DR RIVERA MADE PATIENT AWARE OF TEST RESULTS WILL DC HOME.
[2019-06-27 01:55] VITALS: BP 145/95
--- NOTE | 2019-06-27 01:58 | NUR ---
Patient discharged to home in stable conditon. Written and verbal after care instructions given. Patient verbalizes understanding of instructions.
== END 2019-06-27 01:59 | disposition home or self-care (01) ==
LOC: ER 23:39
DX: R10.32 Left lower quadrant pain (principal); R11.10 Vomiting, unspecified; I10 Essential (primary) hypertension; E11.9 Type 2 diabetes mellitus without complications; G89.29 Other chronic pain; M54.9 Dorsalgia, unspecified; Z88.0 Allergy status to penicillin; Z88.5 Allergy status to narcotic agent; Z88.8 Allergy status to other drugs, medicaments and biological substances; Z79.899 Other long term (current) drug therapy; Z90.49 Acquired absence of other specified parts of digestive tract
CPT/HCPCS: 36415; 80048; 80076; 83690; 85025; 96374; 96375; 96376; 99283; J1170 ×2; J1200; A4663

== ENCOUNTER 2019-07-06 16:16 | Emergency (ER) | payer BC ==
[~2019-07-06] VITALS: Ht 182.9 cm; Wt 117.9 kg
--- NOTE | 2019-07-06 16:30 | NUR ---
ADMIT A 39YO MALE IN RM 1A WITH A C/O ABDOMENAL PAIN, N/V . APPEARS VERY DROWSY, ORIENTED TO HIS NAME. SLEEPING INTERMITTENTLY. GIRLFRIEND AT THE BEDSIDE.
--- NOTE | 2019-07-06 17:25 | NUR ---
SEEN AND EXAMNED BY MD WITH NEW ORDER.
--- NOTE | 2019-07-06 17:40 | NUR ---
STARTED AN IV ACCESS FOR IVF ORDERS BUT PT'S VEIN IS VERY DIFFICULT AND SCARRED. ATTEMPTED 3 TIMES BUT NO SUCCESS. MD IS AWARE.
[2019-07-06] MEDS ORDERED: IV NORMAL SALINE 1000 ML BAG IV ONE (17:45)
[2019-07-06 17:57] LABS: BASOPHILS % (AUTO) 0.7 % (0.0-2.0); EOSINOPHILS % (AUTO) 0.8 % (0.0-7.0); HEMATOCRIT 40.9 % (36.7-47.1); HEMOGLOBIN 13.4 g/dL (12.5-16.3); LYMPHOCYTES # (AUTO) 1.9 K/uL (20.0-40.0); LYMPHOCYTES % (AUTO) 34.3 % (20.5-51.5); MEAN CORPUSCULAR HEMOGLOBIN 28.8 uug (23.8-33.4); MEAN CORPUSCULAR HGB CONC 33 g/dL (32.5-36.3); MONOCYTES # (AUTO) 0.4 K/uL (2.0-10.0); MONOCYTES % (AUTO) 6.5 % (0.0-11.0); NEUTROPHILS # (AUTO) 3.3 K/uL (1.8-8.9); NEUTROPHILS % (AUTO) 57.7 % (38.5-71.5); PLATELET COUNT (AUTO) 350 K/uL (152-348); RED BLOOD CELL COUNT(AUTO) 4.65 MIL/uL (4.06-5.63); WHITE BLOOD COUNT (AUTO) 5.7 K/uL (3.6-10.2)
--- NOTE | 2019-07-06 18:05 | NUR ---
PT DECIDED TO WALK OUT AND ELOPED. IS AWARE.
[2019-07-06 18:06] LABS: POTASSIUM 4.1 mmol/L (3.5-5.1)
[2019-07-06 18:11] LABS: BILIRUBIN,DIRECT 0.1 mg/dL (0.0-0.2); BILIRUBIN,TOTAL 0.3 mg/dL (0.2-1.0); TOTAL PROTEIN, SERUM 7.2 g/dL (6.4-8.2)
[2019-07-06] MEDS ORDERED: diphenhydrAMINE 50 MG/1 ML VIAL IM ONE (18:15)
[2019-07-06] MEDS ORDERED: HYDROMORPHONE 1 MG/1 ML DISP.SYRIN IM ONE (18:15)
--- NOTE | 2019-07-06 18:15 | NUR ---
MEDICATION ORDERS NOT GIVEN PT ELOPED AT 1805.
== END 2019-07-06 18:05 | disposition home or self-care (01) ==
LOC: ER 16:19
DX: F11.23 Opioid dependence with withdrawal (principal); E11.65 Type 2 diabetes mellitus with hyperglycemia; I10 Essential (primary) hypertension; G89.29 Other chronic pain; M54.9 Dorsalgia, unspecified; Z88.0 Allergy status to penicillin; Z88.5 Allergy status to narcotic agent; Z88.8 Allergy status to other drugs, medicaments and biological substances; Z79.899 Other long term (current) drug therapy
CPT/HCPCS: 36415; 70030-TC; 83690; 85025; 85730; A4663; J7030

== ENCOUNTER 2019-07-30 14:59 | Inpatient (IN) | payer BC ==
[~2019-07-30] VITALS: Ht 182.9 cm; Wt 104.8 kg
[2019-07-30] MEDS ORDERED: IV NORMAL SALINE 1000 ML BAG IV ONE (15:30)
[2019-07-30] MEDS ORDERED: ONDANSETRON 4 MG/2 ML VIAL IV ONE ×2 (15:30→17:00)
[2019-07-30] MEDS ORDERED: HYDROMORPHONE 1 MG/1 ML DISP.SYRIN IV ONE ×2 (15:30→17:00)
[2019-07-30] MEDS ORDERED: HYDROMORPHONE 2 MG/1 ML DISP.SYRIN ONE ×2 (15:40→16:58)
[2019-07-30] MEDS ORDERED: ONDANSETRON 4 MG/2 ML VIAL ONE ×2 (15:40→16:58)
[2019-07-30] MEDS ORDERED: diphenhydrAMINE 50 MG/1 ML VIAL ONE ×2 (15:41→17:41)
[2019-07-30] MEDS ORDERED: diphenhydrAMINE 50 MG/1 ML VIAL IV ONE (16:00)
[2019-07-30 16:12] LABS: BASOPHILS % (AUTO) 0.4 % (0.0-2.0); EOSINOPHILS % (AUTO) 0.5 % (0.0-7.0); HEMATOCRIT 40.2 % (36.7-47.1); HEMOGLOBIN 13.2 g/dL (12.5-16.3); LYMPHOCYTES % (AUTO) 35.8 % (20.5-51.5); MEAN CORPUSCULAR HEMOGLOBIN 28.2 uug (23.8-33.4); MEAN CORPUSCULAR HGB CONC 33 g/dL (32.5-36.3); MEAN CORPUSCULAR VOLUME 85.8 fL (73.0-96.2); MONOCYTES # (AUTO) 0.4 K/uL (2.0-10.0); MONOCYTES % (AUTO) 7.3 % (0.0-11.0); NEUTROPHILS # (AUTO) 3.1 K/uL (1.8-8.9); PLATELET COUNT (AUTO) 345 K/uL (152-348); RED BLOOD CELL COUNT(AUTO) 4.68 MIL/uL (4.06-5.63); WHITE BLOOD COUNT (AUTO) 5.6 K/uL (3.6-10.2)
[2019-07-30 16:20] LABS: BILIRUBIN,DIRECT 0.1 mg/dL (0.0-0.2); BILIRUBIN,TOTAL 0.4 mg/dL (0.2-1.0); CREATININE 0.9 mg/dL (0.6-1.3); POTASSIUM 3.4 mmol/L (3.5-5.1); TOTAL PROTEIN, SERUM 6.4 g/dL (6.4-8.2)
[2019-07-30] MEDS ORDERED: INSULIN REGULAR, HUMAN 300 UNIT/3 ML VIAL IV ONE (16:30)
[2019-07-30] MEDS ORDERED: INSULIN REGULAR, HUMAN 300 UNIT/3 ML VIAL ONE (16:35)
--- NOTE | 2019-07-30 17:25 | NUR ---
Received report from Parajmit HARRINGTON in ER, awaiting patient arrival on unit.
[2019-07-30] MEDS: diphenhydrAMINE 50 MG/1 ML VIAL IV PRN ×2 (17:39→20:00)
--- NOTE | 2019-07-30 17:56 | NUR ---
report was given to wellness nurse rn. pt was transfered to room #320.
--- NOTE | 2019-07-30 18:21 | NUR ---
Patient arrived on floor, Douglas Gonzales NP made aware. Awaiting admission orders. Patient on air sampling and monitoring. No distress noted, ambulatory. Skin check done, no skin issues. Addendum: 07/30/19 at 1855 by LIBBY CROSS RN Patient refused reglan, states he is not nauseous now and prefers zofran PRN. Douglas Gonzales NP made aware.
[2019-07-30] MEDS ORDERED: Z GUARD REMEDY PASTE 57 GM TUBE TOP PRN (18:30)
[2019-07-30] MEDS ORDERED: MAGNESIUM HYDROXIDE 30 ML LIQUID UDC PO PRN (18:30)
[2019-07-30] MEDS ORDERED: INSULIN REGULAR, HUMAN 300 UNITS/3 ML VIAL SQ PRN (18:30)
[2019-07-30] MEDS ORDERED: DEXTROSE 50% 50 ML DISP.SYRIN IV PRN (18:30)
[2019-07-30] MEDS: METOCLOPRAMIDE HCL 10 MG/2 ML VIAL IV SCH ×2 (18:30→20:00)
[2019-07-30] MEDS ORDERED: ACETAMINOPHEN 325 MG TABLET PO PRN (18:30)
[2019-07-30] MEDS ORDERED: HYDROCODONE/APAP 5-325MG TABLET PO PRN (18:30)
[2019-07-30 18:35] VITALS: BP 128/85
--- NOTE | 2019-07-30 19:15 | NUR ---
Received bedside report from AM nurse regarding admission. Initial admission process to be continued. Initial assessment done, will document accordingly. Patient with complaints of increasing abdominal pain, aware that we are awaiting order verification for his pain medications. Admission orders noted and carried out at this time. Sinus rhythm on tele, not in active distress at this time. Will continue to monitor.
[2019-07-30 20:00] VITALS: BP 103/63
[2019-07-30] MEDS: FAMOTIDINE. 20 MG/2 ML VIAL IV SCH (20:00)
[2019-07-30] MEDS: ATORVASTATIN 40 MG TABLET PO SCH (20:00)
--- NOTE | 2019-07-30 20:00 | NUR ---
Seen and examined by Dr. Inman, see noted. Pain management to be continued as tolerated.
[2019-07-30] MEDS: HYDROMORPHONE 1 MG/1 ML DISP.SYRIN IV PRN (20:01)
[2019-07-30] MEDS: IV NS 1000 ML 1,000 ML IV PRN (20:35)
[2019-07-30] MEDS: BLOOD SUGAR DIAGNOSTIC 1 EACH STRIP VI SCH (21:17)
[2019-07-31] VITALS: BP 117/74
--- NOTE | 2019-07-31 | NUR ---
Patient remains to be on intermittent pain, pain medications effective for 2-3.5 hours. Pain ranges to 8-10/10 and lowers to about 4/5. Goal is being met at this time. Sinus rhythm on tele, but with episode of tachycardia when patient is ambulating to bathroom, but returns to sinus rhythm when back in bed at rest. Will continue to monitor and manage pain, and attend to needs. With good urine output of 900cc. Oral intake of water 700cc.
[2019-07-31] MEDS: HYDROMORPHONE 1 MG/1 ML DISP.SYRIN IV PRN ×3 (00:01→12:08)
[2019-07-31] MEDS: diphenhydrAMINE 50 MG/1 ML VIAL IV PRN ×4 (02:08→20:32)
[2019-07-31 04:00] VITALS: BP 118/75
[2019-07-31] MEDS: METOCLOPRAMIDE HCL 10 MG/2 ML VIAL IV SCH ×3 (06:07→21:23)
[2019-07-31] MEDS: INSULIN REGULAR, HUMAN 300 UNIT/3 ML VIAL SQ PRN ×3 (06:24→16:32)
[2019-07-31] MEDS: BLOOD SUGAR DIAGNOSTIC 1 EACH STRIP VI SCH ×4 (06:25→21:30)
--- NOTE | 2019-07-31 08:00 | NUR ---
Alert, oriented x 4, pleasant. Complaining of abdominal pain scale 8/10. Dilaudid 2 mg given
[2019-07-31] MEDS: FAMOTIDINE. 20 MG/2 ML VIAL IV SCH ×2 (08:03→21:23)
[2019-07-31] MEDS: LISINOPRIL 10 MG TABLET PO SCH (08:04)
[2019-07-31 09:15] LABS: BASOPHILS % (AUTO) 0.9 % (0.0-2.0); EOSINOPHILS # (AUTO) 0.1 K/uL (0.0-0.7); EOSINOPHILS % (AUTO) 1.3 % (0.0-7.0); HEMATOCRIT 40.3 % (36.7-47.1); HEMOGLOBIN 13.2 g/dL (12.5-16.3); LYMPHOCYTES % (AUTO) 41.4 % (20.5-51.5); MEAN CORPUSCULAR HEMOGLOBIN 28.6 uug (23.8-33.4); MEAN CORPUSCULAR HGB CONC 33 g/dL (32.5-36.3); MEAN CORPUSCULAR VOLUME 87.5 fL (73.0-96.2); MONOCYTES # (AUTO) 0.4 K/uL (2.0-10.0); MONOCYTES % (AUTO) 8.9 % (0.0-11.0); NEUTROPHILS # (AUTO) 2.3 K/uL (1.8-8.9); NEUTROPHILS % (AUTO) 47.5 % (38.5-71.5); PLATELET COUNT (AUTO) 313 K/uL (152-348); WHITE BLOOD COUNT (AUTO) 4.9 K/uL (3.6-10.2)
[2019-07-31 09:42] LABS: THYROID STIMULATING HORMONE 1.178 mIU/mL (0.358-3.740)
[2019-07-31 10:08] LABS: CREATININE 0.9 mg/dL (0.6-1.3); MAGNESIUM 1.8 mg/dL (1.8-2.4); PHOSPHOROUS 3.4 mg/dL (2.5-4.9); POTASSIUM 4.2 mmol/L (3.5-5.1)
[2019-07-31] MEDS: IV NS 1000 ML 1,000 ML IV PRN ×2 (10:54→19:20)
[2019-07-31 12:01] VITALS: BP 135/84
[2019-07-31] MEDS ORDERED: HYDROMORPHONE 1 MG/1 ML DISP.SYRIN IV PRN (12:15)
[2019-07-31] MEDS ORDERED: HYDROMORPHONE 2 MG/1 ML DISP.SYRIN IV ONE (12:15)
[2019-07-31] MEDS ORDERED: DEXTROSE 50% 50 ML DISP.SYRIN IV PRN (12:30)
[2019-07-31] MEDS: ENOXAPARIN SODIUM 40 MG/0.4 ML DISP.SYRIN SQ SCH (12:30)
--- NOTE | 2019-07-31 12:30 | NUR ---
Per patient Dilaudid 2 mg IV not effective in relieving pain. With orders from Dr. Inman, dose increased
[2019-07-31 15:46] VITALS: BP 93/43
[2019-07-31] MEDS: HYDROMORPHONE 2 MG/1 ML DISP.SYRIN IV PRN ×2 (16:22→20:32)
--- NOTE | 2019-07-31 18:58 | NUR ---
Patient requesting for Ativan, waiting for doctor's orders. Endorsed for further care
--- NOTE | 2019-07-31 19:15 | NUR ---
Patient awake in bed. Requesting ativan, doctor contacted, awaiting response. AO x 4. IV in right hand patent and in tact. In no distress currently. Will continue to monitor. Safety precautions in place.
[2019-07-31 20:00] VITALS: BP 130/83
[2019-07-31] MEDS: ONDANSETRON 4 MG/2 ML VIAL IV PRN (20:31)
[2019-07-31] MEDS: ATORVASTATIN 40 MG TABLET PO SCH (21:23)
[2019-07-31] MEDS: INSULIN REGULAR, HUMAN 300 UNITS/3 ML VIAL SQ PRN (21:32)
[2019-07-31] MEDS ORDERED: LORAZEPAM 0.5 MG TABLET PO PRN (22:00)
[2019-08-01] MEDS: HYDROMORPHONE 2 MG/1 ML DISP.SYRIN IV PRN ×5 (00:33→20:55)
[2019-08-01 04:00] VITALS: BP 148/91
[2019-08-01] MEDS: diphenhydrAMINE 50 MG/1 ML VIAL IV PRN ×2 (04:33→16:55)
[2019-08-01] MEDS: METOCLOPRAMIDE HCL 10 MG/2 ML VIAL IV SCH ×3 (06:18→17:46)
[2019-08-01] MEDS: LISINOPRIL 10 MG TABLET PO SCH ×2 (06:43→08:39)
--- NOTE | 2019-08-01 06:43 | NUR ---
Lisinopril given at this time for elevated BP of 167/95. Will endorse to next shift nurse.
--- NOTE | 2019-08-01 06:44 | NUR ---
Patient slept throughout the night and arousable. Patient complain of severe pain in abdomen. Requested pain medication every 4 hours. No acute change in patient condition. NS running at 75mL/hr. BP elevated (167/95) - given lisinopril. Will endorse care to oncoming shift.
--- NOTE | 2019-08-01 07:20 | NUR ---
Received patient awake and alert. No acute distress noted. patient denies pain and discomfort. bed in lowest position, side rails up x2, call light within reach. Will continue to monitor.
[2019-08-01] MEDS: FAMOTIDINE. 20 MG/2 ML VIAL IV SCH (08:39)
[2019-08-01] MEDS: BLOOD SUGAR DIAGNOSTIC 1 EACH STRIP VI SCH ×4 (08:48→21:08)
[2019-08-01] MEDS: INSULIN REGULAR, HUMAN 300 UNIT/3 ML VIAL SQ PRN ×2 (08:52→13:25)
[2019-08-01 10:15] LABS: CREATININE 0.8 mg/dL (0.6-1.3); POTASSIUM 4.3 mmol/L (3.5-5.1)
[2019-08-01 10:42] LABS: BASOPHILS % (AUTO) 0.6 % (0.0-2.0); EOSINOPHILS # (AUTO) 0.1 K/uL (0.0-0.7); EOSINOPHILS % (AUTO) 1.6 % (0.0-7.0); HEMATOCRIT 39.2 % (36.7-47.1); HEMOGLOBIN 12.8 g/dL (12.5-16.3); LYMPHOCYTES % (AUTO) 35.7 % (20.5-51.5); MEAN CORPUSCULAR HEMOGLOBIN 28.8 uug (23.8-33.4); MEAN CORPUSCULAR HGB CONC 33 g/dL (32.5-36.3); MEAN CORPUSCULAR VOLUME 87.9 fL (73.0-96.2); MONOCYTES # (AUTO) 0.4 K/uL (2.0-10.0); MONOCYTES % (AUTO) 7.3 % (0.0-11.0); NEUTROPHILS # (AUTO) 3.1 K/uL (1.8-8.9); NEUTROPHILS % (AUTO) 54.8 % (38.5-71.5); PLATELET COUNT (AUTO) 273 K/uL (152-348); RED BLOOD CELL COUNT(AUTO) 4.46 MIL/uL (4.06-5.63); WHITE BLOOD COUNT (AUTO) 5.6 K/uL (3.6-10.2)
[2019-08-01] MEDS ORDERED: FLEET ENEMA 133 ML BOTTLE RC ONE (11:00)
[2019-08-01] MEDS: SENNOSIDES 1 TABLET PO SCH ×2 (11:33→16:49)
[2019-08-01 11:41] VITALS: BP 145/91
[2019-08-01] MEDS ORDERED: ERYTHROMYCIN ETHYLSUCC 200 MG/5 ML SUSPENSION 100ML PO SCH (12:00)
[2019-08-01] MEDS: ENOXAPARIN SODIUM 40 MG/0.4 ML DISP.SYRIN SQ SCH (12:30)
[2019-08-01 15:35] VITALS: BP 137/85
--- NOTE | 2019-08-01 18:44 | NUR ---
Patient rested throughout day. Patient reported pain, pain medication given. Multiple IV attempts, midline inserted without complications. Patient safety provided. No acute distress throughout shift.
--- NOTE | 2019-08-01 19:20 | NUR ---
Received patient awake in bed, AO x 4. Complaints of pain in abdomen. Midline in Left upper arm patent and in tact. Safety precautions in place. Comfort provided. Will continue to monitor throughout shift.
[2019-08-01 20:22] VITALS: BP 147/85
[2019-08-01] MEDS ORDERED: LORAZEPAM 1 MG TABLET PO ONE (20:30)
--- NOTE | 2019-08-01 20:30 | NUR ---
Patient requesting ativan IV 1mg every 4 hours. Douglas Gonzales contacted; given order for 1mg PO ONCE.
[2019-08-01] MEDS: ATORVASTATIN 40 MG TABLET PO SCH (20:55)
[2019-08-01] MEDS: FAMOTIDINE 20 MG TABLET PO SCH (21:02)
[2019-08-01] MEDS: INSULIN REGULAR, HUMAN 300 UNITS/3 ML VIAL SQ PRN (21:12)
[2019-08-01] MEDS: IV NS 1000 ML 1,000 ML IV PRN (21:18)
[2019-08-02] MEDS: METOCLOPRAMIDE HCL 10 MG/2 ML VIAL IV SCH ×4 (00:20→18:00)
[2019-08-02] MEDS: HYDROMORPHONE 2 MG/1 ML DISP.SYRIN IV PRN ×6 (00:52→21:23)
[2019-08-02] MEDS: diphenhydrAMINE 50 MG/1 ML VIAL IV PRN ×3 (00:52→17:07)
--- NOTE | 2019-08-02 05:01 | NUR ---
Patient slept throughout the night but easily arousable to stimuli. Requesting pain medication around the clock for complaint of abdominal pain. No change in patient condition, safety precautions in place. Left U/A midline 18G running normal saline at 75mL/hr. Will endorse accordingly.
[2019-08-02 06:21] VITALS: BP 146/87
[2019-08-02] MEDS: BLOOD SUGAR DIAGNOSTIC 1 EACH STRIP VI SCH ×4 (06:46→21:36)
--- NOTE | 2019-08-02 07:30 | NUR ---
RECEIVED PATIENT IN BED , NO C/O PAIN AND NO SOB NOTED AT THIS TIME. MIDLINE RIGHT UPPER ARM 18 GAUGE WITH NS AT 75 ML/HR. . SAFETY AND COMFORT PROVIDED AT ALL TIME. CALL LIGHT WITHIN REACHED. WILL CONTINUE TO MONITOR.
[2019-08-02] MEDS: INSULIN REGULAR, HUMAN 300 UNIT/3 ML VIAL SQ PRN ×3 (08:43→18:43)
[2019-08-02] MEDS: SENNOSIDES 1 TABLET PO SCH ×2 (08:47→17:15)
[2019-08-02] MEDS: FAMOTIDINE 20 MG TABLET PO SCH ×2 (08:47→21:39)
[2019-08-02] MEDS: LISINOPRIL 10 MG TABLET PO SCH (08:47)
[2019-08-02] MEDS ORDERED: FLEET ENEMA 133 ML BOTTLE RC ONE (10:30)
[2019-08-02 11:12] VITALS: BP 134/80
[2019-08-02] MEDS: IV NS 1000 ML 1,000 ML IV PRN (11:31)
[2019-08-02] MEDS: ENOXAPARIN SODIUM 40 MG/0.4 ML DISP.SYRIN SQ SCH (12:19)
[2019-08-02 15:12] VITALS: BP 128/86
[2019-08-02] MEDS: ATORVASTATIN 40 MG TABLET PO SCH (17:11)
[2019-08-02] MEDS: ONDANSETRON 4 MG/2 ML VIAL IV PRN (17:11)
--- NOTE | 2019-08-02 18:49 | NUR ---
PATIENT IN BED WATCHING TV , NO C/O PAIN AND NO SOB NOTED AT THIS TIME. MIDLINE ON THE RIGHT UPPER ARM, INTACT AND PATENT . SAFETY AND COMFORT PROVIDED AT ALL TIME. CALL LIGHT WITHIN REACHED. WILL CONTINUE TO MONITOR.
--- NOTE | 2019-08-02 19:00 | NUR ---
PATIENT ALERT ORIENTED, NO SOB NO CHEST PAIN, CONT ON PAIN MANAGEMENT DUE ABD PAIN. CONT TO MONITOR.
[2019-08-02 20:14] VITALS: BP 146/89
[2019-08-02] MEDS: INSULIN REGULAR, HUMAN 300 UNITS/3 ML VIAL SQ PRN (21:41)
--- NOTE | 2019-08-02 21:47 | NUR ---
CALLED DR. MONTOYA REGARDING PATIENT REQUEST OF ATIVAN 1MG IV PRN FOR ABD CRAMPING. OKAYED THE ORDER,
[2019-08-02] MEDS: LORAZEPAM 2 MG/1 ML VIAL IV PRN (22:30)
[2019-08-03] MEDS: METOCLOPRAMIDE HCL 10 MG/2 ML VIAL IV SCH ×4 (00:32→18:00)
[2019-08-03] MEDS: diphenhydrAMINE 50 MG/1 ML VIAL IV PRN ×3 (01:04→17:58)
[2019-08-03] MEDS: HYDROMORPHONE 2 MG/1 ML DISP.SYRIN IV PRN ×5 (01:18→17:58)
[2019-08-03] MEDS: IV NS 1000 ML 1,000 ML IV PRN ×2 (01:40→13:48)
[2019-08-03 05:26] VITALS: BP 144/88
[2019-08-03] MEDS: LORAZEPAM 2 MG/1 ML VIAL IV PRN ×3 (05:34→17:58)
--- NOTE | 2019-08-03 07:49 | NUR ---
PATIENT IN BED , NO S/S OF ACUTE DISTRESS NOTED, MIDLINE INTACT, PRN PAIN MEDICATIONS GIVEN EARLIER AND ATIVAN GIVEN EARLIER , WILL CONTINUE MONITOR . SAFETY AND COMFORT PROVIDED AT ALL TIMES. CALL LIGHT WITHIN REACHED.
[2019-08-03] MEDS: BLOOD SUGAR DIAGNOSTIC 1 EACH STRIP VI SCH ×3 (07:55→17:10)
[2019-08-03] MEDS: INSULIN REGULAR, HUMAN 300 UNIT/3 ML VIAL SQ PRN ×3 (08:59→17:39)
[2019-08-03] MEDS: FAMOTIDINE 20 MG TABLET PO SCH (09:05)
[2019-08-03] MEDS: SENNOSIDES 1 TABLET PO SCH ×2 (09:05→17:11)
[2019-08-03] MEDS: LISINOPRIL 10 MG TABLET PO SCH (09:07)
[2019-08-03] MEDS ORDERED: METO-295 PO (09:21)
[2019-08-03] MEDS ORDERED: DOCU-141 PO (09:21)
[2019-08-03] MEDS ORDERED: SENN-168 PO (09:21)
[2019-08-03 11:10] VITALS: BP 147/96
[2019-08-03] MEDS: ENOXAPARIN SODIUM 40 MG/0.4 ML DISP.SYRIN SQ SCH (12:12)
[2019-08-03 15:10] VITALS: BP 141/83
--- NOTE | 2019-08-03 18:30 | NUR ---
Discharge patient to home via private car, discharge instructions given with prescription provided medications educations and explanation. Belongings accounted for and signed, midline and ID band removed. No SOB noted at this time. Questions and concern addressed.
== END 2019-08-03 18:15 | disposition home or self-care (01) | DRG 74 ==
LOC: ER 14:59 → TELE3 17:19 → MEDSURG3 07-31 15:19
PROVIDERS: ADMIT Nurse Practitioner Acute Care; ATTEND Nurse Practitioner Acute Care
PROC: 05H933Z Insertion of Infusion Device into Right Brachial Vein, Percutaneous Approach (ICD-10-PCS; principal; 2019-08-01)
DX: E11.43 Type 2 diabetes mellitus with diabetic autonomic (poly)neuropathy (principal); K31.84 Gastroparesis; E44.0 Moderate protein-calorie malnutrition; K50.90 Crohn's disease, unspecified, without complications; E87.1 Hypo-osmolality and hyponatremia; K51.90 Ulcerative colitis, unspecified, without complications; G89.4 Chronic pain syndrome; E11.65 Type 2 diabetes mellitus with hyperglycemia; E87.6 Hypokalemia; K56.41 Fecal impaction; Z86.718 Personal history of other venous thrombosis and embolism; Z83.3 Family history of diabetes mellitus; Z86.711 Personal history of pulmonary embolism; Z90.49 Acquired absence of other specified parts of digestive tract; Z79.4 Long term (current) use of insulin; G89.21 Chronic pain due to trauma; Z87.828 Personal history of other (healed) physical injury and trauma; T14.90XS Injury, unspecified, sequela; V97.0 Occupant of aircraft injured in other specified air transport accidents; Z82.49 Family history of ischemic heart disease and other diseases of the circulatory system; Z79.899 Other long term (current) drug therapy; E78.5 Hyperlipidemia, unspecified; I10 Essential (primary) hypertension; Z79.891 Long term (current) use of opiate analgesic; I70.0 Atherosclerosis of aorta; Z82.3 Family history of stroke; Z87.19 Personal history of other diseases of the digestive system
CPT/HCPCS: 36415; 70030-TC; 71045; 83690; 83735; 84100; 84443; 85025; 85730; 93005; A4663; G0378; J1170; J1200; J1650; J1815; J2060; J2405; J2765; J3490; J7030

== ENCOUNTER 2019-08-08 11:34 | Inpatient (IN) | payer BC ==
[~2019-08-08] VITALS: Ht 182.9 cm; Wt 104.3 kg
[~2019-08-08 11:34] MED LIST changes: +DOCU-141 PO; -DULA0.75 SQ; -ENOX40DI SQ; -LIRA0.6P2 SQ; +METO-295 PO; +SENN-168 PO
[2019-08-08] MEDS ORDERED: IV NORMAL SALINE 1000 ML BAG IV ONE (12:00)
[2019-08-08] MEDS ORDERED: HYDROMORPHONE 1 MG/1 ML DISP.SYRIN IV ONE ×2 (12:00→14:00)
[2019-08-08] MEDS ORDERED: ONDANSETRON 4 MG/2 ML VIAL IV ONE ×2 (12:00→14:00)
[2019-08-08 12:59] LABS: BASOPHILS % (AUTO) 0.6 % (0.0-2.0); EOSINOPHILS # (AUTO) 0.1 K/uL (0.0-0.7); EOSINOPHILS % (AUTO) 1.4 % (0.0-7.0); HEMATOCRIT 39.1 % (36.7-47.1); HEMOGLOBIN 12.9 g/dL (12.5-16.3); LYMPHOCYTES # (AUTO) 1.9 K/uL (20.0-40.0); LYMPHOCYTES % (AUTO) 37.8 % (20.5-51.5); MEAN CORPUSCULAR HEMOGLOBIN 28.7 uug (23.8-33.4); MEAN CORPUSCULAR HGB CONC 33 g/dL (32.5-36.3); MEAN CORPUSCULAR VOLUME 87.1 fL (73.0-96.2); MONOCYTES # (AUTO) 0.3 K/uL (2.0-10.0); MONOCYTES % (AUTO) 6.8 % (0.0-11.0); NEUTROPHILS # (AUTO) 2.7 K/uL (1.8-8.9); NEUTROPHILS % (AUTO) 53.4 % (38.5-71.5); PLATELET COUNT (AUTO) 187 K/uL (152-348); RED BLOOD CELL COUNT(AUTO) 4.48 MIL/uL (4.06-5.63)
[2019-08-08 13:04] LABS: CREATININE 0.9 mg/dL (0.6-1.3); POTASSIUM 4.1 mmol/L (3.5-5.1)
[2019-08-08 13:10] LABS: BILIRUBIN,DIRECT 0.1 mg/dL (0.0-0.2); BILIRUBIN,TOTAL 0.4 mg/dL (0.2-1.0); TOTAL PROTEIN, SERUM 7.4 g/dL (6.4-8.2)
[2019-08-08] MEDS ORDERED: HYDROMORPHONE 2 MG/1 ML DISP.SYRIN ONE ×2 (13:10→13:58)
[2019-08-08] MEDS ORDERED: ONDANSETRON 4 MG/2 ML VIAL ONE ×2 (13:11→13:58)
[2019-08-08 13:13] LABS: *BILIRUBIN,URIN NEGATIVE (NEGATIVE); *BLOOD, URINE NEGATIVE (NEGATIVE); *CLARITY,URINE CLEAR (CLEAR); *COLOR,URINE YELLOW (YELLOW); *KETONES,URINE NEGATIVE (NEGATIVE); *UROBILINOGEN,URINE 0.2 E.U./dl (NORMAL); LEUKOCYTE ESTERASE ,URINE NEGATIVE (NEGATIVE); NITRITE, URINE NEGATIVE (NEGATIVE); PH,URINE 5.5 (5.0-8.0)
[2019-08-08 13:15] LABS: UGLUCOSE 2+ (NEGATIVE)
[2019-08-08] MEDS ORDERED: diphenhydrAMINE 50 MG/1 ML VIAL IV ONE (13:15)
[2019-08-08] MEDS ORDERED: INSU100V37 SQ (13:23)
[2019-08-08] MEDS ORDERED: DOCU-141 PO (13:23)
[2019-08-08 13:24] LABS: BACTERIA,URINE NONE SEEN /HPF (NONE SEEN); RBC,URINE NONE SEEN /HPF (0-3); SQUAMOUS EPITHELIAL CELL,UR NONE SEEN /HPF (NONE SEEN); WBC,URINE NONE SEEN /HPF (0-3)
[2019-08-08] MEDS ORDERED: diphenhydrAMINE 50 MG/1 ML VIAL ONE (13:27)
[2019-08-08] MEDS ORDERED: INSULIN REGULAR, HUMAN 300 UNIT/3 ML VIAL ONE (13:44)
[2019-08-08] MEDS ORDERED: INSULIN REGULAR, HUMAN 300 UNIT/3 ML VIAL IV ONE (13:45)
[2019-08-08] MEDS ORDERED: LABETALOL HCL 100 MG/20 ML VIAL ONE (15:32)
[2019-08-08] MEDS ORDERED: LABETALOL HCL 100 MG/20 ML VIAL IV ONE (15:45)
[2019-08-08 16:30] VITALS: BP 131/67
[2019-08-08] MEDS ORDERED: DOCUSATE SODIUM 100 MG CAPSULE PO PRN (17:00)
[2019-08-08] MEDS ORDERED: ACETAMINOPHEN 325 MG TABLET PO PRN (17:15)
[2019-08-08] MEDS ORDERED: IV NS 1000 ML 1,000 ML IV ONE (17:15)
[2019-08-08] MEDS ORDERED: DEXTROSE 50% 50 ML DISP.SYRIN IV PRN (17:15)
[2019-08-08] MEDS ORDERED: HYDROMORPHONE 1 MG/1 ML DISP.SYRIN IV PRN ×2 (17:15→18:30)
[2019-08-08] MEDS ORDERED: MAGNESIUM HYDROXIDE 30 ML LIQUID UDC PO PRN (17:15)
[2019-08-08] MEDS ORDERED: Z GUARD REMEDY PASTE 57 GM TUBE TOP PRN (17:15)
[2019-08-08] MEDS: IV NS 1000 ML 1,000 ML IV PRN (17:23)
[2019-08-08] MEDS: SENNOSIDES 1 TABLET PO SCH (17:25)
[2019-08-08] MEDS: diphenhydrAMINE 50 MG/1 ML VIAL IV PRN (19:19)
[2019-08-08 20:00] VITALS: BP 147/90
[2019-08-08] MEDS: HYDROMORPHONE 2 MG/1 ML DISP.SYRIN IV PRN (20:02)
[2019-08-08] MEDS: BLOOD SUGAR DIAGNOSTIC 1 EACH STRIP VI SCH (21:09)
[2019-08-08] MEDS: INSULIN GLARGINE,HUM 300 UNITS/3 ML CARTRIDGE SQ SCH (21:13)
[2019-08-08] MEDS: ATORVASTATIN 40 MG TABLET PO SCH (21:13)
[2019-08-08] MEDS: INSULIN REGULAR, HUMAN 300 UNIT/3 ML VIAL SQ PRN (21:14)
[2019-08-08] MEDS: LORAZEPAM 1 MG TABLET PO PRN (23:22)
[2019-08-09] VITALS: BP 153/87
[2019-08-09] MEDS: HYDROMORPHONE 2 MG/1 ML DISP.SYRIN IV PRN ×6 (00:24→20:34)
[2019-08-09] MEDS: diphenhydrAMINE 50 MG/1 ML VIAL IV PRN ×4 (02:04→20:33)
[2019-08-09 04:00] VITALS: BP 141/87
[2019-08-09 06:34] LABS: EOSINOPHILS % (AUTO) 0.7 % (0.0-7.0); HEMATOCRIT 39.2 % (36.7-47.1); LYMPHOCYTES # (AUTO) 1.8 K/uL (20.0-40.0); MEAN CORPUSCULAR HEMOGLOBIN 28.5 uug (23.8-33.4); MEAN CORPUSCULAR HGB CONC 33 g/dL (32.5-36.3); MEAN CORPUSCULAR VOLUME 85.9 fL (73.0-96.2); MONOCYTES # (AUTO) 0.4 K/uL (2.0-10.0); MONOCYTES % (AUTO) 10.1 % (0.0-11.0); NEUTROPHILS # (AUTO) 1.9 K/uL (1.8-8.9); NEUTROPHILS % (AUTO) 46.2 % (38.5-71.5); PLATELET COUNT (AUTO) 185 K/uL (152-348); RED BLOOD CELL COUNT(AUTO) 4.56 MIL/uL (4.06-5.63); WHITE BLOOD COUNT (AUTO) 4.2 K/uL (3.6-10.2)
[2019-08-09 06:43] LABS: ALANINE AMINOTRANSFERASE 13 U/L (16-63); ALKALINE PHOSPHATASE 60 U/L (50-136); ASPARTATE AMINOTRANSFERASE 7 U/L (15-37); BILIRUBIN,TOTAL 0.4 mg/dL (0.2-1.0); CARBON DIOXIDE 28 mmol/L (21-32); CHLORIDE 101 mmol/L (98-107); CREATININE 0.6 mg/dL (0.6-1.3); GLUCOSE 243 mg/dL (74-106); MAGNESIUM 1.9 mg/dL (1.8-2.4); PHOSPHOROUS 4.3 mg/dL (2.5-4.9); POTASSIUM 3.8 mmol/L (3.5-5.1); UREA NITROGEN, BLOOD 7 mg/dL (7-18)
[2019-08-09 06:44] LABS: CHOLESTEROL 165 mg/dL (<200); HDL CHOLESTEROL 43 mg/dL (40-60); TRIGLYCERIDES 83 MG/DL (30-150)
[2019-08-09] MEDS: BLOOD SUGAR DIAGNOSTIC 1 EACH STRIP VI SCH ×4 (06:48→20:03)
[2019-08-09] MEDS: INSULIN REGULAR, HUMAN 300 UNIT/3 ML VIAL SQ PRN ×3 (08:00→17:13)
[2019-08-09] MEDS: LISINOPRIL 10 MG TABLET PO SCH (08:41)
[2019-08-09] MEDS: SENNOSIDES 1 TABLET PO SCH ×2 (08:42→16:41)
[2019-08-09 11:22] VITALS: BP 142/71
[2019-08-09] MEDS: IV NS 1000 ML 1,000 ML IV PRN ×2 (12:23→20:04)
[2019-08-09] MEDS: LORAZEPAM 1 MG TABLET PO PRN (14:38)
[2019-08-09 15:50] VITALS: BP 113/71
[2019-08-09] MEDS: ONDANSETRON 4 MG/2 ML VIAL IV PRN (16:33)
[2019-08-09 19:52] VITALS: BP 115/72
[2019-08-09] MEDS: ATORVASTATIN 40 MG TABLET PO SCH (20:34)
[2019-08-09] MEDS: INSULIN GLARGINE,HUM 300 UNITS/3 ML CARTRIDGE SQ SCH (20:46)
[2019-08-09] MEDS: INSULIN REGULAR, HUMAN 300 UNITS/3 ML VIAL SQ PRN (20:47)
[2019-08-10] MEDS: HYDROMORPHONE 2 MG/1 ML DISP.SYRIN IV PRN ×6 (00:25→20:34)
[2019-08-10] MEDS: LORAZEPAM 1 MG TABLET PO PRN (01:53)
[2019-08-10] MEDS: diphenhydrAMINE 50 MG/1 ML VIAL IV PRN ×4 (01:53→20:39)
[2019-08-10 05:20] VITALS: BP 149/93
[2019-08-10] MEDS: ONDANSETRON 4 MG/2 ML VIAL IV PRN ×2 (05:23→10:02)
[2019-08-10 06:46] LABS: CREATININE 0.9 mg/dL (0.6-1.3); MAGNESIUM 1.7 mg/dL (1.8-2.4); PHOSPHOROUS 4.3 mg/dL (2.5-4.9); POTASSIUM 4.4 mmol/L (3.5-5.1)
[2019-08-10 06:52] LABS: BASOPHILS % (AUTO) 0.5 % (0.0-2.0); EOSINOPHILS # (AUTO) 0.1 K/uL (0.0-0.7); EOSINOPHILS % (AUTO) 1.3 % (0.0-7.0); HEMATOCRIT 37.5 % (36.7-47.1); HEMOGLOBIN 12.4 g/dL (12.5-16.3); LYMPHOCYTES # (AUTO) 2.4 K/uL (20.0-40.0); LYMPHOCYTES % (AUTO) 41.8 % (20.5-51.5); MEAN CORPUSCULAR HEMOGLOBIN 28.5 uug (23.8-33.4); MEAN CORPUSCULAR HGB CONC 33 g/dL (32.5-36.3); MEAN CORPUSCULAR VOLUME 85.8 fL (73.0-96.2); MONOCYTES # (AUTO) 0.5 K/uL (2.0-10.0); MONOCYTES % (AUTO) 8.9 % (0.0-11.0); NEUTROPHILS # (AUTO) 2.7 K/uL (1.8-8.9); NEUTROPHILS % (AUTO) 47.5 % (38.5-71.5); PLATELET COUNT (AUTO) 193 K/uL (152-348); RED BLOOD CELL COUNT(AUTO) 4.37 MIL/uL (4.06-5.63); WHITE BLOOD COUNT (AUTO) 5.7 K/uL (3.6-10.2)
[2019-08-10] MEDS: BLOOD SUGAR DIAGNOSTIC 1 EACH STRIP VI SCH ×4 (06:58→21:38)
[2019-08-10] MEDS: LISINOPRIL 10 MG TABLET PO SCH (08:19)
[2019-08-10] MEDS: SENNOSIDES 1 TABLET PO SCH ×3 (08:24→18:00)
[2019-08-10] MEDS: INSULIN REGULAR, HUMAN 300 UNIT/3 ML VIAL SQ PRN ×3 (08:27→17:55)
[2019-08-10] MEDS ORDERED: HYDROMORPHONE HCL 2 MG TABLET PO PRN (10:45)
[2019-08-10] MEDS: IV NS 1000 ML 1,000 ML IV PRN ×2 (11:15→22:24)
[2019-08-10 11:26] VITALS: BP 145/92
[2019-08-10] MEDS: MAGNESIUM SULFATE/D5W 100 ML IV SCH ×2 (12:56→14:02)
[2019-08-10] MEDS: LORAZEPAM 2 MG/1 ML VIAL IV PRN ×2 (14:28→21:27)
[2019-08-10] MEDS ORDERED: DIATR MEGLU/DIATRIZOATE SODIUM 30 ML SOLUTION ONE (15:36)
[2019-08-10 15:40] VITALS: BP 138/85
[2019-08-10] MEDS ORDERED: diphenhydrAMINE 50 MG/1 ML VIAL IV ONE (16:30)
[2019-08-10] MEDS ORDERED: IV NORMAL SALINE 250 ML IV ONE (16:59)
[2019-08-10] MEDS ORDERED: SWABABLE VALVE TRANSFER SET EA MC ONE (16:59)
[2019-08-10] MEDS ORDERED: IOHEXOL 300MG/ML 100 ML INFUS..BTL ONE (16:59)
[2019-08-10 20:26] VITALS: BP 125/77
[2019-08-10] MEDS: ATORVASTATIN 40 MG TABLET PO SCH (20:30)
[2019-08-10] MEDS: INSULIN GLARGINE,HUM 300 UNITS/3 ML CARTRIDGE SQ SCH (22:15)
[2019-08-10] MEDS: INSULIN REGULAR, HUMAN 300 UNITS/3 ML VIAL SQ PRN (22:17)
[2019-08-11] MEDS: HYDROMORPHONE 2 MG/1 ML DISP.SYRIN IV PRN ×5 (01:08→19:56)
[2019-08-11] MEDS: diphenhydrAMINE 50 MG/1 ML VIAL IV PRN ×3 (02:47→19:54)
[2019-08-11] MEDS: LORAZEPAM 2 MG/1 ML VIAL IV PRN ×3 (04:43→20:59)
[2019-08-11 05:41] VITALS: BP 122/64
[2019-08-11] MEDS: BLOOD SUGAR DIAGNOSTIC 1 EACH STRIP VI SCH ×4 (06:33→21:11)
[2019-08-11 06:37] LABS: BASOPHILS % (AUTO) 0.6 % (0.0-2.0); EOSINOPHILS # (AUTO) 0.1 K/uL (0.0-0.7); EOSINOPHILS % (AUTO) 1.7 % (0.0-7.0); HEMATOCRIT 37.1 % (36.7-47.1); HEMOGLOBIN 12.3 g/dL (12.5-16.3); LYMPHOCYTES # (AUTO) 1.9 K/uL (20.0-40.0); LYMPHOCYTES % (AUTO) 40.6 % (20.5-51.5); MEAN CORPUSCULAR HEMOGLOBIN 28.2 uug (23.8-33.4); MEAN CORPUSCULAR HGB CONC 33 g/dL (32.5-36.3); MEAN CORPUSCULAR VOLUME 84.8 fL (73.0-96.2); MONOCYTES # (AUTO) 0.4 K/uL (2.0-10.0); MONOCYTES % (AUTO) 8.8 % (0.0-11.0); NEUTROPHILS # (AUTO) 2.3 K/uL (1.8-8.9); NEUTROPHILS % (AUTO) 48.3 % (38.5-71.5); PLATELET COUNT (AUTO) 204 K/uL (152-348); RED BLOOD CELL COUNT(AUTO) 4.37 MIL/uL (4.06-5.63); WHITE BLOOD COUNT (AUTO) 4.8 K/uL (3.6-10.2)
[2019-08-11 06:58] LABS: BILIRUBIN,TOTAL 0.3 mg/dL (0.2-1.0); CREATININE 0.8 mg/dL (0.6-1.3); MAGNESIUM 1.8 mg/dL (1.8-2.4); PHOSPHOROUS 3.9 mg/dL (2.5-4.9); POTASSIUM 4.2 mmol/L (3.5-5.1); TOTAL PROTEIN, SERUM 6.7 g/dL (6.4-8.2)
[2019-08-11] MEDS: IV NS 1000 ML 1,000 ML IV PRN ×3 (07:01→23:23)
[2019-08-11] MEDS: SENNOSIDES 1 TABLET PO SCH ×2 (08:58→17:00)
[2019-08-11] MEDS: LISINOPRIL 10 MG TABLET PO SCH (08:59)
[2019-08-11] MEDS: INSULIN REGULAR, HUMAN 300 UNIT/3 ML VIAL SQ PRN ×2 (09:04→12:16)
[2019-08-11 11:57] VITALS: BP 142/84
[2019-08-11 15:16] VITALS: BP 128/80
[2019-08-11 16:25] LABS: IRON, SERUM 58 ug/dL (50-175)
[2019-08-11 16:38] LABS: FERRITIN 78 ng/mL (26-388)
[2019-08-11] MEDS: METOCLOPRAMIDE HCL 10 MG/2 ML VIAL IV SCH (17:10)
[2019-08-11 19:46] VITALS: BP 143/84
[2019-08-11] MEDS: ATORVASTATIN 40 MG TABLET PO SCH (21:10)
[2019-08-11] MEDS: INSULIN REGULAR, HUMAN 300 UNITS/3 ML VIAL SQ PRN (21:16)
[2019-08-11] MEDS: INSULIN GLARGINE,HUM 300 UNITS/3 ML CARTRIDGE SQ SCH (21:17)
[2019-08-12] MEDS: HYDROMORPHONE 2 MG/1 ML DISP.SYRIN IV PRN ×7 (00:43→22:27)
[2019-08-12] MEDS: diphenhydrAMINE 50 MG/1 ML VIAL IV PRN ×3 (02:08→18:14)
[2019-08-12] MEDS: LORAZEPAM 2 MG/1 ML VIAL IV PRN ×4 (04:12→23:15)
[2019-08-12] MEDS: METOCLOPRAMIDE HCL 10 MG/2 ML VIAL IV SCH ×5 (05:34→16:55)
[2019-08-12 06:24] LABS: BASOPHILS % (AUTO) 0.6 % (0.0-2.0); EOSINOPHILS # (AUTO) 0.1 K/uL (0.0-0.7); EOSINOPHILS % (AUTO) 2.2 % (0.0-7.0); HEMATOCRIT 38.7 % (36.7-47.1); LYMPHOCYTES # (AUTO) 2.1 K/uL (20.0-40.0); LYMPHOCYTES % (AUTO) 44.5 % (20.5-51.5); MEAN CORPUSCULAR HEMOGLOBIN 28.3 uug (23.8-33.4); MEAN CORPUSCULAR HGB CONC 34 g/dL (32.5-36.3); MEAN CORPUSCULAR VOLUME 84.5 fL (73.0-96.2); MONOCYTES # (AUTO) 0.4 K/uL (2.0-10.0); MONOCYTES % (AUTO) 7.9 % (0.0-11.0); NEUTROPHILS # (AUTO) 2.1 K/uL (1.8-8.9); NEUTROPHILS % (AUTO) 44.8 % (38.5-71.5); PLATELET COUNT (AUTO) 216 K/uL (152-348); RED BLOOD CELL COUNT(AUTO) 4.58 MIL/uL (4.06-5.63); WHITE BLOOD COUNT (AUTO) 4.7 K/uL (3.6-10.2)
[2019-08-12] MEDS: BLOOD SUGAR DIAGNOSTIC 1 EACH STRIP VI SCH ×4 (06:39→21:04)
[2019-08-12 06:40] LABS: CREATININE 0.9 mg/dL (0.6-1.3); MAGNESIUM 1.7 mg/dL (1.8-2.4); PHOSPHOROUS 4.2 mg/dL (2.5-4.9); POTASSIUM 4.1 mmol/L (3.5-5.1)
[2019-08-12] MEDS: IV NS 1000 ML 1,000 ML IV PRN ×2 (06:54→16:33)
[2019-08-12] MEDS: SENNOSIDES 1 TABLET PO SCH ×2 (09:52→16:26)
[2019-08-12] MEDS: MIRALAX 17 GM POWD.PACK PO SCH (09:52)
[2019-08-12] MEDS: LISINOPRIL 10 MG TABLET PO SCH (09:53)
[2019-08-12] MEDS: INSULIN REGULAR, HUMAN 300 UNIT/3 ML VIAL SQ PRN ×3 (09:55→16:40)
[2019-08-12] MEDS ORDERED: METOCLOPRAMIDE HCL 10 MG/2 ML VIAL IV ONE (11:15)
[2019-08-12 11:25] VITALS: BP 160/93
[2019-08-12 16:12] VITALS: BP 130/79
[2019-08-12] MEDS: MAGNESIUM SULFATE/D5W 100 ML IV SCH ×2 (16:22→18:13)
[2019-08-12 19:52] VITALS: BP 134/79
[2019-08-12] MEDS: ATORVASTATIN 40 MG TABLET PO SCH (20:59)
[2019-08-12] MEDS: INSULIN REGULAR, HUMAN 300 UNITS/3 ML VIAL SQ PRN (21:11)
[2019-08-12] MEDS: INSULIN GLARGINE,HUM 300 UNITS/3 ML CARTRIDGE SQ SCH (21:11)
[2019-08-13] MEDS: METOCLOPRAMIDE HCL 10 MG/2 ML VIAL IV SCH ×4 (00:09→12:09)
[2019-08-13] MEDS: diphenhydrAMINE 50 MG/1 ML VIAL IV PRN ×3 (00:23→12:51)
[2019-08-13] MEDS: IV NS 1000 ML 1,000 ML IV PRN ×2 (02:27→11:16)
[2019-08-13] MEDS ORDERED: INSULIN REGULAR, HUMAN 300 UNIT/3 ML VIAL SQ ONE (02:45)
[2019-08-13] MEDS: HYDROMORPHONE 2 MG/1 ML DISP.SYRIN IV PRN ×3 (02:50→12:48)
[2019-08-13 04:00] VITALS: BP 140/89
[2019-08-13] MEDS: LORAZEPAM 2 MG/1 ML VIAL IV PRN ×2 (05:15→13:52)
[2019-08-13 06:36] LABS: BASOPHILS % (AUTO) 0.5 % (0.0-2.0); EOSINOPHILS # (AUTO) 0.1 K/uL (0.0-0.7); EOSINOPHILS % (AUTO) 1.7 % (0.0-7.0); HEMATOCRIT 37.7 % (36.7-47.1); HEMOGLOBIN 12.4 g/dL (12.5-16.3); LYMPHOCYTES # (AUTO) 1.7 K/uL (20.0-40.0); LYMPHOCYTES % (AUTO) 38.6 % (20.5-51.5); MEAN CORPUSCULAR HGB CONC 33 g/dL (32.5-36.3); MEAN CORPUSCULAR VOLUME 85.5 fL (73.0-96.2); MONOCYTES # (AUTO) 0.4 K/uL (2.0-10.0); NEUTROPHILS # (AUTO) 2.2 K/uL (1.8-8.9); NEUTROPHILS % (AUTO) 50.2 % (38.5-71.5); PLATELET COUNT (AUTO) 237 K/uL (152-348); RED BLOOD CELL COUNT(AUTO) 4.41 MIL/uL (4.06-5.63); WHITE BLOOD COUNT (AUTO) 4.4 K/uL (3.6-10.2)
[2019-08-13] MEDS: BLOOD SUGAR DIAGNOSTIC 1 EACH STRIP VI SCH ×2 (06:42→12:00)
[2019-08-13 07:03] LABS: CREATININE 0.9 mg/dL (0.6-1.3); MAGNESIUM 1.8 mg/dL (1.8-2.4); POTASSIUM 3.8 mmol/L (3.5-5.1)
[2019-08-13] MEDS: MIRALAX 17 GM POWD.PACK PO SCH (08:45)
[2019-08-13] MEDS: SENNOSIDES 1 TABLET PO SCH (08:49)
[2019-08-13] MEDS: LISINOPRIL 10 MG TABLET PO SCH (08:49)
[2019-08-13] MEDS: INSULIN REGULAR, HUMAN 300 UNIT/3 ML VIAL SQ PRN ×2 (08:53→12:09)
[2019-08-13 11:31] VITALS: BP 150/91
[2019-08-13] MEDS ORDERED: METO-295 PO (12:14)
[2019-08-13] MEDS ORDERED: INSU100V37 SQ (12:53)
[2019-08-13] MEDS ORDERED: HUM100IN SQ (12:53)
[2019-08-13] MEDS ORDERED: SEMA0.25 SQ (12:53)
[2019-08-13 15:21] VITALS: BP 146/85
== END 2019-08-13 16:10 | disposition home or self-care (01) | DRG 74 ==
LOC: ER 11:34 → CCU 15:20 → MEDSURG3 21:59
PROVIDERS: ADMIT Hospitalist; ATTEND Hospitalist
PROC: 05HA33Z Insertion of Infusion Device into Left Brachial Vein, Percutaneous Approach (ICD-10-PCS; principal; 2019-08-10)
DX: E10.43 Type 1 diabetes mellitus with diabetic autonomic (poly)neuropathy (principal); K50.912 Crohn's disease, unspecified, with intestinal obstruction; K56.7 Ileus, unspecified; K50.911 Crohn's disease, unspecified, with rectal bleeding; E10.65 Type 1 diabetes mellitus with hyperglycemia; K31.84 Gastroparesis; Z79.4 Long term (current) use of insulin; Z79.891 Long term (current) use of opiate analgesic; E83.42 Hypomagnesemia; Z87.828 Personal history of other (healed) physical injury and trauma; Z91.19 Patient's noncompliance with other medical treatment and regimen; Z90.49 Acquired absence of other specified parts of digestive tract; Z86.718 Personal history of other venous thrombosis and embolism; Z86.711 Personal history of pulmonary embolism; Z83.3 Family history of diabetes mellitus; Z82.49 Family history of ischemic heart disease and other diseases of the circulatory system; Z82.3 Family history of stroke; Z80.0 Family history of malignant neoplasm of digestive organs; Z79.899 Other long term (current) drug therapy; G89.21 Chronic pain due to trauma; F41.9 Anxiety disorder, unspecified; E78.5 Hyperlipidemia, unspecified; K20.9 Esophagitis, unspecified
CPT/HCPCS: 36415; 70030-TC; 74018; 82378; 83520; 83550; 83690; 83735; 84100; 85025; 85610; 85730; 86256; 93005; A4663; G0378; J1170; J1200; J1815; J2060; J2405; J2765; J3475; J3490; J7030; J7050; Q9963; Q9967

== ENCOUNTER 2019-08-18 20:57 | Emergency (ER) | payer BC ==
[~2019-08-18] VITALS: Ht 182.9 cm; Wt 99.8 kg
[~2019-08-18 20:57] MED LIST changes: +INSU100V37 SQ; +SEMA0.25 SQ; -TRESIBA SQ
[2019-08-18] MEDS ORDERED: METOCLOPRAMIDE HCL 10 MG/2 ML VIAL IV ONE (21:30)
[2019-08-18] MEDS ORDERED: HYDROMORPHONE HCL 2 MG TABLET PO ONE (21:30)
--- NOTE | 2019-08-18 21:40 | NUR ---
Pt eloped from the department. notified.
--- NOTE | 2019-08-18 21:52 | NUR ---
Patient eloped from facility. ER physician notified.
== END 2019-08-18 21:54 | disposition left against medical advice (07) ==
LOC: ER 20:57
DX: G89.29 Other chronic pain (principal); R10.9 Unspecified abdominal pain; R11.2 Nausea with vomiting, unspecified; R19.7 Diarrhea, unspecified; Z76.5 Malingerer [conscious simulation]; I10 Essential (primary) hypertension; E11.9 Type 2 diabetes mellitus without complications; Z90.49 Acquired absence of other specified parts of digestive tract; Z88.0 Allergy status to penicillin; Z88.5 Allergy status to narcotic agent; Z88.8 Allergy status to other drugs, medicaments and biological substances; Z79.4 Long term (current) use of insulin; Z79.899 Other long term (current) drug therapy
CPT/HCPCS: A4663; J7030

== ENCOUNTER 2019-08-23 09:34 | Emergency (ER) | payer BC ==
[~2019-08-23] VITALS: Ht 182.9 cm; Wt 99.8 kg
--- NOTE | 2019-08-23 09:55 | NUR ---
Dr Ross is at bedside doing the MSE.
--- NOTE | 2019-08-23 09:55 | NUR ---
Shashank zhu in ED - 08/23/19 at 0955 by SEAN Bruno Ross is at bedside doing the MSE.
[2019-08-23] MEDS ORDERED: ONDANSETRON 4 MG/2 ML VIAL IV ONE ×3 (10:00→13:15)
[2019-08-23] MEDS ORDERED: diphenhydrAMINE 50 MG/1 ML VIAL IV ONE ×3 (10:00→13:15)
[2019-08-23] MEDS ORDERED: HYDROMORPHONE 1 MG/1 ML DISP.SYRIN IV ONE ×3 (10:00→13:15)
[2019-08-23] MEDS ORDERED: IV NORMAL SALINE 1000 ML BAG IV ONE (10:00)
[2019-08-23] MEDS ORDERED: ONDANSETRON 4 MG/2 ML VIAL ONE ×3 (10:03→13:22)
[2019-08-23] MEDS ORDERED: HYDROMORPHONE 2 MG/1 ML DISP.SYRIN ONE ×2 (10:03→11:19)
[2019-08-23] MEDS ORDERED: diphenhydrAMINE 50 MG/1 ML VIAL ONE ×3 (10:03→13:22)
[2019-08-23 10:17] LABS: BASOPHILS % (AUTO) 0.5 % (0.0-2.0); EOSINOPHILS # (AUTO) 0.1 K/uL (0.0-0.7); EOSINOPHILS % (AUTO) 1.1 % (0.0-7.0); HEMATOCRIT 43.3 % (36.7-47.1); HEMOGLOBIN 14.4 g/dL (12.5-16.3); LYMPHOCYTES # (AUTO) 1.6 K/uL (20.0-40.0); MEAN CORPUSCULAR HEMOGLOBIN 28.1 uug (23.8-33.4); MEAN CORPUSCULAR HGB CONC 33 g/dL (32.5-36.3); MEAN CORPUSCULAR VOLUME 84.6 fL (73.0-96.2); MONOCYTES # (AUTO) 0.3 K/uL (2.0-10.0); MONOCYTES % (AUTO) 6.1 % (0.0-11.0); NEUTROPHILS # (AUTO) 2.7 K/uL (1.8-8.9); NEUTROPHILS % (AUTO) 58.3 % (38.5-71.5); PLATELET COUNT (AUTO) 324 K/uL (152-348); RED BLOOD CELL COUNT(AUTO) 5.12 MIL/uL (4.06-5.63); WHITE BLOOD COUNT (AUTO) 4.6 K/uL (3.6-10.2)
[2019-08-23 10:24] LABS: CREATININE 0.7 mg/dL (0.6-1.3); POTASSIUM 4.2 mmol/L (3.5-5.1)
[2019-08-23] MEDS ORDERED: INSULIN REGULAR, HUMAN 300 UNIT/3 ML VIAL ONE (10:28)
[2019-08-23 10:30] LABS: BILIRUBIN,DIRECT 0.1 mg/dL (0.0-0.2); BILIRUBIN,TOTAL 0.6 mg/dL (0.2-1.0); TOTAL PROTEIN, SERUM 7.9 g/dL (6.4-8.2)
[2019-08-23] MEDS ORDERED: INSULIN REGULAR, HUMAN 300 UNIT/3 ML VIAL IV ONE (10:30)
[2019-08-23] MEDS: IV NORMAL SALINE 1000 ML BAG IV ONE ×2 (10:32→11:46)
--- NOTE | 2019-08-23 10:47 | NUR ---
Patient is resting comfortably on gurney while using his personal electronic device, drowsy@this time, respiration:easy, " Can I have more pain medicine?" per patient's verbalization, notified.
--- NOTE | 2019-08-23 11:49 | NUR ---
Patient is resting comfortably on gurney with eyes closed, IV fluids boluses still infusing via pump, for discharge after IV fluids boluses are done.PATIENT IS PAIN FREE AT THIS TIME.
--- NOTE | 2019-08-23 13:09 | NUR ---
Patient is awake, alert, wanting more pain medicines, MD notified.
[2019-08-23] MEDS ORDERED: HYDROMORPHONE 1 MG/1 ML DISP.SYRIN ONE (13:22)
--- NOTE | 2019-08-23 13:42 | NUR ---
Patient said that he will call [employer].
--- NOTE | 2019-08-23 13:46 | NUR ---
IV removed. Catheter intact and site benign. Pressure and 4x4 gauze applied to site. No bleeding noted. Patient discharged to home in stable conditon and steady gait. Written and verbal after care instructions given to patient. Patient verbalizes understanding & compliance of instructions.
--- NOTE | 2019-08-23 13:50 | NUR ---
Patient ambulated to bathroom with steady gait from room 3 to bathroom in nurses' station.
== END 2019-08-23 13:55 | disposition home or self-care (01) ==
LOC: ER 09:34
DX: K50.90 Crohn's disease, unspecified, without complications (principal); I10 Essential (primary) hypertension; E11.9 Type 2 diabetes mellitus without complications; G89.29 Other chronic pain; M54.9 Dorsalgia, unspecified; Z88.0 Allergy status to penicillin; Z88.1 Allergy status to other antibiotic agents; Z88.8 Allergy status to other drugs, medicaments and biological substances; Z88.5 Allergy status to narcotic agent; Z79.4 Long term (current) use of insulin; Z79.899 Other long term (current) drug therapy
CPT/HCPCS: 36415; 80048; 80076; 83690; 85025; 96361; 96374; 96375; 96376; 99283; J1170 ×3; J1200 ×3; J1815; J2405 ×3; A4663; J7030

== ENCOUNTER 2019-08-25 10:45 | Inpatient (IN) | payer BC ==
[~2019-08-25] VITALS: Ht 182.9 cm; Wt 105.7 kg
[2019-08-25] MEDS ORDERED: IV NORMAL SALINE 1000 ML BAG IV ONE ×2 (11:15→12:15)
[2019-08-25] MEDS ORDERED: ONDANSETRON 4 MG/2 ML VIAL IV ONE ×2 (11:15→13:00)
[2019-08-25] MEDS ORDERED: HYDROMORPHONE 1 MG/1 ML DISP.SYRIN IV ONE ×2 (11:15→13:00)
[2019-08-25] MEDS ORDERED: ONDANSETRON 4 MG/2 ML VIAL ONE ×2 (11:27→12:58)
[2019-08-25] MEDS ORDERED: HYDROMORPHONE 2 MG/1 ML DISP.SYRIN ONE ×2 (11:27→12:58)
[2019-08-25] MEDS ORDERED: diphenhydrAMINE 50 MG/1 ML VIAL ONE ×2 (11:44→12:58)
[2019-08-25] MEDS ORDERED: diphenhydrAMINE 50 MG/1 ML VIAL IV ONE ×2 (11:45→13:00)
[2019-08-25 11:48] LABS: BASOPHILS % (AUTO) 0.5 % (0.0-2.0); EOSINOPHILS # (AUTO) 0.1 K/uL (0.0-0.7); EOSINOPHILS % (AUTO) 1.1 % (0.0-7.0); HEMATOCRIT 42.3 % (36.7-47.1); LYMPHOCYTES # (AUTO) 2.4 K/uL (20.0-40.0); LYMPHOCYTES % (AUTO) 41.7 % (20.5-51.5); MEAN CORPUSCULAR HEMOGLOBIN 28.4 uug (23.8-33.4); MEAN CORPUSCULAR HGB CONC 33 g/dL (32.5-36.3); MEAN CORPUSCULAR VOLUME 85.7 fL (73.0-96.2); MONOCYTES # (AUTO) 0.4 K/uL (2.0-10.0); MONOCYTES % (AUTO) 7.3 % (0.0-11.0); NEUTROPHILS # (AUTO) 2.8 K/uL (1.8-8.9); NEUTROPHILS % (AUTO) 49.4 % (38.5-71.5); PLATELET COUNT (AUTO) 273 K/uL (152-348); RED BLOOD CELL COUNT(AUTO) 4.93 MIL/uL (4.06-5.63); WHITE BLOOD COUNT (AUTO) 5.8 K/uL (3.6-10.2)
[2019-08-25 11:59] LABS: BILIRUBIN,DIRECT 0.1 mg/dL (0.0-0.2); BILIRUBIN,TOTAL 0.3 mg/dL (0.2-1.0); CREATININE 0.7 mg/dL (0.6-1.3); POTASSIUM 4.2 mmol/L (3.5-5.1); TOTAL PROTEIN, SERUM 7.9 g/dL (6.4-8.2)
[2019-08-25] MEDS ORDERED: DOCUSATE SODIUM 100 MG CAPSULE PO PRN (12:15)
[2019-08-25] MEDS ORDERED: Z GUARD REMEDY PASTE 57 GM TUBE TOP PRN (12:30)
[2019-08-25] MEDS ORDERED: ONDANSETRON 4 MG/2 ML VIAL IV PRN (12:30)
[2019-08-25] MEDS ORDERED: DEXTROSE 50% 50 ML DISP.SYRIN IV PRN (12:30)
[2019-08-25] MEDS ORDERED: HYDROMORPHONE 1 MG/1 ML DISP.SYRIN IV PRN (12:30)
[2019-08-25] MEDS ORDERED: MAGNESIUM HYDROXIDE 30 ML LIQUID UDC PO PRN (12:30)
[2019-08-25] MEDS ORDERED: ACETAMINOPHEN 325 MG TABLET PO PRN (12:30)
[2019-08-25] MEDS ORDERED: HYDROMORPHONE 4 MG/1 ML DISP.SYRIN IV PRN (14:00)
[2019-08-25 14:28] VITALS: BP 157/92
[2019-08-25 14:29] LABS: *BILIRUBIN,URIN NEGATIVE (NEGATIVE); *BLOOD, URINE NEGATIVE (NEGATIVE); *CLARITY,URINE CLEAR (CLEAR); *COLOR,URINE YELLOW (YELLOW); *KETONES,URINE NEGATIVE (NEGATIVE); *UROBILINOGEN,URINE 0.2 E.U./dl (NORMAL); LEUKOCYTE ESTERASE ,URINE NEGATIVE (NEGATIVE); NITRITE, URINE NEGATIVE (NEGATIVE); PH,URINE 5.5 (5.0-8.0)
[2019-08-25 14:56] LABS: UGLUCOSE 3+ (NEGATIVE)
[2019-08-25 14:59] LABS: BACTERIA,URINE NONE SEEN /HPF (NONE SEEN); MUCUS,URINE FEW /LPF (0-FEW); RBC,URINE 0-3 /HPF (0-3); SQUAMOUS EPITHELIAL CELL,UR FEW /HPF (NONE SEEN); WBC,URINE 0-3 /HPF (0-3)
[2019-08-25 16:00] VITALS: BP 164/93
[2019-08-25] MEDS: HYDROMORPHONE 2 MG/1 ML DISP.SYRIN IV PRN ×2 (16:24→20:45)
[2019-08-25] MEDS: SENNOSIDES 1 TABLET PO SCH (17:10)
[2019-08-25] MEDS: METOCLOPRAMIDE HCL 10 MG/2 ML VIAL IV SCH (17:11)
[2019-08-25] MEDS: LORAZEPAM 2 MG/1 ML VIAL IV PRN ×2 (17:11→22:13)
[2019-08-25] MEDS: BLOOD SUGAR DIAGNOSTIC 1 EACH STRIP VI SCH ×2 (17:25→20:52)
[2019-08-25] MEDS: INSULIN REGULAR, HUMAN 300 UNIT/3 ML VIAL SQ PRN (18:01)
[2019-08-25] MEDS: diphenhydrAMINE 50 MG/1 ML VIAL IV PRN (18:40)
[2019-08-25 20:00] VITALS: BP 137/81
[2019-08-25] MEDS: ATORVASTATIN 40 MG TABLET PO SCH (20:44)
[2019-08-25] MEDS: IV NS 1000 ML 1,000 ML IV PRN (20:46)
[2019-08-25] MEDS: INSULIN REGULAR, HUMAN 300 UNITS/3 ML VIAL SQ PRN (22:08)
[2019-08-26] VITALS: BP 143/92
[2019-08-26 00:31] LABS: *OCCULT BLOOD STOOL NEGATIVE (NEGATIVE)
[2019-08-26] MEDS: diphenhydrAMINE 50 MG/1 ML VIAL IV PRN ×4 (01:49→20:18)
[2019-08-26] MEDS: HYDROMORPHONE 2 MG/1 ML DISP.SYRIN IV PRN ×6 (01:50→22:29)
[2019-08-26] MEDS: LORAZEPAM 2 MG/1 ML VIAL IV PRN ×3 (05:05→18:32)
[2019-08-26 05:38] VITALS: BP 144/86
[2019-08-26] MEDS: METOCLOPRAMIDE HCL 10 MG/2 ML VIAL IV SCH ×4 (06:00→17:33)
[2019-08-26] MEDS: PANTOPRAZOLE SODIUM 40 MG TABLET.DR PO SCH (06:16)
[2019-08-26] MEDS: BLOOD SUGAR DIAGNOSTIC 1 EACH STRIP VI SCH ×4 (06:32→20:27)
[2019-08-26] MEDS: SENNOSIDES 1 TABLET PO SCH ×2 (08:33→17:33)
[2019-08-26] MEDS: LISINOPRIL 10 MG TABLET PO SCH (08:34)
[2019-08-26] MEDS: INSULIN REGULAR, HUMAN 300 UNIT/3 ML VIAL SQ PRN ×3 (08:52→17:35)
[2019-08-26] MEDS: IV NS 1000 ML 1,000 ML IV PRN (10:26)
[2019-08-26 12:00] VITALS: BP 141/84
[2019-08-26] MEDS ORDERED: HOME MED MISCELLANEOUS XX SCH (13:45)
[2019-08-26 14:31] LABS: BASOPHILS % (AUTO) 0.5 % (0.0-2.0); EOSINOPHILS # (AUTO) 0.1 K/uL (0.0-0.7); EOSINOPHILS % (AUTO) 1.9 % (0.0-7.0); HEMATOCRIT 40.1 % (36.7-47.1); HEMOGLOBIN 13.1 g/dL (12.5-16.3); LYMPHOCYTES # (AUTO) 2.1 K/uL (20.0-40.0); LYMPHOCYTES % (AUTO) 47.7 % (20.5-51.5); MEAN CORPUSCULAR HEMOGLOBIN 28.3 uug (23.8-33.4); MEAN CORPUSCULAR HGB CONC 33 g/dL (32.5-36.3); MEAN CORPUSCULAR VOLUME 86.6 fL (73.0-96.2); MONOCYTES # (AUTO) 0.3 K/uL (2.0-10.0); MONOCYTES % (AUTO) 7.8 % (0.0-11.0); NEUTROPHILS # (AUTO) 1.8 K/uL (1.8-8.9); NEUTROPHILS % (AUTO) 42.1 % (38.5-71.5); PLATELET COUNT (AUTO) 248 K/uL (152-348); RED BLOOD CELL COUNT(AUTO) 4.64 MIL/uL (4.06-5.63); WHITE BLOOD COUNT (AUTO) 4.3 K/uL (3.6-10.2)
[2019-08-26 14:56] LABS: CREATININE 0.7 mg/dL (0.6-1.3); MAGNESIUM 1.8 mg/dL (1.8-2.4); PHOSPHOROUS 4.5 mg/dL (2.5-4.9); POTASSIUM 3.6 mmol/L (3.5-5.1)
[2019-08-26 15:56] VITALS: BP 141/77
[2019-08-26] MEDS: ATORVASTATIN 40 MG TABLET PO SCH (20:18)
[2019-08-26] MEDS: INSULIN REGULAR, HUMAN 300 UNITS/3 ML VIAL SQ PRN (20:30)
[2019-08-26] MEDS ORDERED: INSULIN GLARGINE,HUM 300 UNITS/3 ML CARTRIDGE SQ SCH (21:00)
[2019-08-26 21:04] VITALS: BP 118/72
[2019-08-27] MEDS: METOCLOPRAMIDE HCL 10 MG/2 ML VIAL IV SCH ×3 (00:29→11:56)
[2019-08-27] MEDS: LORAZEPAM 2 MG/1 ML VIAL IV PRN ×3 (00:29→13:40)
[2019-08-27] MEDS: IV NS 1000 ML 1,000 ML IV PRN (00:29)
[2019-08-27] MEDS: diphenhydrAMINE 50 MG/1 ML VIAL IV PRN ×3 (02:34→14:10)
[2019-08-27] MEDS: HYDROMORPHONE 2 MG/1 ML DISP.SYRIN IV PRN ×4 (02:35→15:39)
[2019-08-27 05:34] VITALS: BP 130/84
[2019-08-27] MEDS: PANTOPRAZOLE SODIUM 40 MG TABLET.DR PO SCH (06:29)
[2019-08-27] MEDS: BLOOD SUGAR DIAGNOSTIC 1 EACH STRIP VI SCH ×2 (06:39→11:58)
[2019-08-27] MEDS: SENNOSIDES 1 TABLET PO SCH (08:15)
[2019-08-27] MEDS: LISINOPRIL 10 MG TABLET PO SCH (08:15)
[2019-08-27] MEDS: INSULIN REGULAR, HUMAN 300 UNIT/3 ML VIAL SQ PRN ×2 (08:20→12:22)
[2019-08-27 11:20] VITALS: BP 143/96
[2019-08-27 15:15] VITALS: BP 107/60
[2019-08-27 15:25] VITALS: BP 157/92
== END 2019-08-27 16:50 | disposition home or self-care (01) | DRG 74 ==
LOC: ER 10:45 → TELE3 13:40 → MEDSURG3 08-26 07:30
PROVIDERS: ADMIT Internal Medicine; ATTEND Internal Medicine
PROC: 05HC33Z Insertion of Infusion Device into Left Basilic Vein, Percutaneous Approach (ICD-10-PCS; principal; 2019-08-25)
DX: E10.43 Type 1 diabetes mellitus with diabetic autonomic (poly)neuropathy (principal); E87.1 Hypo-osmolality and hyponatremia; K51.90 Ulcerative colitis, unspecified, without complications; E87.2 Acidosis; K31.84 Gastroparesis; Z79.4 Long term (current) use of insulin; E10.65 Type 1 diabetes mellitus with hyperglycemia; E86.0 Dehydration; G89.4 Chronic pain syndrome; G89.21 Chronic pain due to trauma; I10 Essential (primary) hypertension; Z80.0 Family history of malignant neoplasm of digestive organs; Z86.711 Personal history of pulmonary embolism; Z86.718 Personal history of other venous thrombosis and embolism; Z87.11 Personal history of peptic ulcer disease; Z79.899 Other long term (current) drug therapy; Z79.891 Long term (current) use of opiate analgesic; Z87.828 Personal history of other (healed) physical injury and trauma; Z98.890 Other specified postprocedural states; Z87.19 Personal history of other diseases of the digestive system
CPT/HCPCS: 36415; 70030-TC; 71045; 83520; 83605; 83690; 83735; 84100; 85025; 85730; 86256; 86625; 87046; 89055; 93005; A4663; G0378; J1170; J1200; J1815; J2060; J2405; J2765; J7030; J7040

== ENCOUNTER 2019-09-07 09:11 | Emergency (ER) | payer BC ==
[~2019-09-07] VITALS: Ht 182.9 cm; Wt 99.8 kg
--- NOTE | 2019-09-07 10:50 | NUR ---
Dr. Oseguera here to see pt for MSE.
[2019-09-07] MEDS ORDERED: diphenhydrAMINE 50 MG/1 ML VIAL IM ONE (11:00)
[2019-09-07] MEDS ORDERED: HYDROMORPHONE 1 MG/1 ML DISP.SYRIN IM ONE (11:00)
[2019-09-07] MEDS ORDERED: diphenhydrAMINE 50 MG/1 ML VIAL ONE ×2 (11:06→13:41)
[2019-09-07] MEDS ORDERED: HYDROMORPHONE 2 MG/1 ML DISP.SYRIN ONE (11:06)
[2019-09-07 11:25] LABS: BASOPHILS % (AUTO) 0.6 % (0.0-2.0); EOSINOPHILS % (AUTO) 0.8 % (0.0-7.0); HEMATOCRIT 41.6 % (36.7-47.1); LYMPHOCYTES # (AUTO) 1.6 K/uL (20.0-40.0); MEAN CORPUSCULAR HEMOGLOBIN 28.2 uug (23.8-33.4); MEAN CORPUSCULAR HGB CONC 34 g/dL (32.5-36.3); MEAN CORPUSCULAR VOLUME 83.9 fL (73.0-96.2); MONOCYTES # (AUTO) 0.2 K/uL (2.0-10.0); NEUTROPHILS # (AUTO) 2.3 K/uL (1.8-8.9); NEUTROPHILS % (AUTO) 54.6 % (38.5-71.5); PLATELET COUNT (AUTO) 259 K/uL (152-348); RED BLOOD CELL COUNT(AUTO) 4.95 MIL/uL (4.06-5.63); WHITE BLOOD COUNT (AUTO) 4.1 K/uL (3.6-10.2)
[2019-09-07 11:37] LABS: CREATININE 0.7 mg/dL (0.6-1.3); POTASSIUM 4.2 mmol/L (3.5-5.1)
[2019-09-07 11:42] LABS: BILIRUBIN,DIRECT 0.1 mg/dL (0.0-0.2); BILIRUBIN,TOTAL 0.4 mg/dL (0.2-1.0); TOTAL PROTEIN, SERUM 7.6 g/dL (6.4-8.2)
[2019-09-07] MEDS ORDERED: ONDANSETRON 4 MG/2 ML VIAL IV ONE (12:15)
[2019-09-07] MEDS ORDERED: IV NORMAL SALINE 1000 ML BAG IV ONE (12:15)
[2019-09-07] MEDS ORDERED: HYDROMORPHONE 1 MG/1 ML DISP.SYRIN IV ONE ×2 (12:15→15:00)
[2019-09-07] MEDS ORDERED: ONDANSETRON 4 MG/2 ML VIAL ONE (12:34)
[2019-09-07] MEDS ORDERED: HYDROMORPHONE 1 MG/1 ML DISP.SYRIN ONE ×2 (12:34→14:57)
[2019-09-07] MEDS ORDERED: diphenhydrAMINE 50 MG/1 ML VIAL IV ONE (13:45)
--- NOTE | 2019-09-07 14:51 | NUR ---
[facility]. Waiting for Emeli Joy NP to call back.
--- NOTE | 2019-09-07 15:05 | NUR ---
CAR DEALER Emeli here to see pt. CAR DEALER already spoke with Dr. Oseguera regarding pt's plan of care.
--- NOTE | 2019-09-07 15:16 | NUR ---
Patient discharged to home in stable conditon. Written and verbal after care instructions given. Patient verbalizes understanding of instructions.
== END 2019-09-07 15:18 | disposition home or self-care (01) ==
LOC: ER 09:11
DX: R10.32 Left lower quadrant pain (principal); R10.13 Epigastric pain; R19.7 Diarrhea, unspecified; Z76.5 Malingerer [conscious simulation]; I10 Essential (primary) hypertension; E11.9 Type 2 diabetes mellitus without complications; G89.29 Other chronic pain; M54.9 Dorsalgia, unspecified; Z88.0 Allergy status to penicillin; Z88.5 Allergy status to narcotic agent; Z88.8 Allergy status to other drugs, medicaments and biological substances; Z79.4 Long term (current) use of insulin; Z79.899 Other long term (current) drug therapy
CPT/HCPCS: 36415; 71045; 80048; 80076; 82009; 83605; 83690; 84484; 85025; 85730; 87040 ×2; 93005; 96372 ×2; 96374; 96375; 96376; 99284; J1170 ×3; J1200 ×2; J2405; 70030-TC; A4663; J7030

== ENCOUNTER 2019-09-22 15:30 | Emergency (ER) | payer BC ==
[2019-09-22] MEDS ORDERED: FAMOTIDINE. 20 MG/2 ML VIAL IV ONE (21:13)
== END 2019-09-22 16:07 | disposition left against medical advice (07) ==
LOC: ER 15:30
DX: Z53.21 Procedure and treatment not carried out due to patient leaving prior to being seen by health care provider (principal)
CPT/HCPCS: J3490

== ENCOUNTER 2019-12-05 05:17 | Emergency (ER) | payer BC ==
[~2019-12-05] VITALS: Ht 182.9 cm; Wt 104.8 kg
[2019-12-05] MEDS ORDERED: HYDROMORPHONE 2 MG/1 ML DISP.SYRIN ONE (05:54)
[2019-12-05] MEDS ORDERED: ONDANSETRON 4 MG/2 ML VIAL ONE (05:54)
[2019-12-05] MEDS ORDERED: ONDANSETRON 4 MG/2 ML VIAL IM ONE (06:00)
[2019-12-05] MEDS ORDERED: HYDROMORPHONE 1 MG/1 ML DISP.SYRIN IM ONE (06:00)
[2019-12-05] MEDS ORDERED: LIDOCAINE HCL 2% 20 ML VIAL TP ONE (06:00)
[2019-12-05] MEDS ORDERED: diphenhydrAMINE 50 MG/1 ML VIAL ONE (06:07)
[2019-12-05] MEDS ORDERED: diphenhydrAMINE 50 MG/1 ML VIAL IM ONE (06:15)
--- NOTE | 2019-12-05 06:21 | NUR ---
Patient discharged to home in stable conditon . Written and verbal after care instructions given. Patient verbalizes understanding of instructions. AMBULATED WITH STABLE GAIT . ALL BELONGINGS W/PT.PT WILL BE DRIVEN HOME IN [place].
[2019-12-05 06:23] VITALS: BP 115/70
== END 2019-12-05 06:24 | disposition home or self-care (01) ==
LOC: ER 05:24
DX: L02.414 Cutaneous abscess of left upper limb (principal); Z60.2 Problems related to living alone; Z88.0 Allergy status to penicillin; Z88.1 Allergy status to other antibiotic agents; Z88.8 Allergy status to other drugs, medicaments and biological substances; Z79.899 Other long term (current) drug therapy
CPT/HCPCS: 96372 ×3; 99284; J1170; J1200; J2405; A4663

== ENCOUNTER 2020-01-20 01:53 | Emergency (ER) | payer BC ==
[~2020-01-20] VITALS: Ht 182.9 cm; Wt 102.1 kg
[~2020-01-20 01:53] MED LIST changes: -SENN-168 PO; +SENN-261 PO
--- NOTE | 2020-01-20 02:05 | NUR ---
Pt ambulated to ER, in steady gait. AO x 4. Verbally responsive. Verbalizes that he brought himself in for abdominal pain, accompanied by nausea and vomiting for one week OVEREDGER. He describes his pain as crampy 7/10, mostly on his lower left quadrant. He also complains of diarrhea, but unable to state when last bowel movement is. Slightly tachycardic at 108-115, denies chest pain or any other cardio-respiratory discomfort. Respirations even and unlabored. Saturating at 98% O2 on RA. No other complaints, not in active cardio respiratory distress. Safety precautions maintained.
--- NOTE | 2020-01-20 02:06 | NUR ---
Dr. Guerrero at bedside for MSE.
--- NOTE | 2020-01-20 02:20 | NUR ---
Patient is refusing diagnostic workup and treatment as discussed by the MD. Agreed to have blood sugar taken and EKG done, results relayed to MD.
--- NOTE | 2020-01-20 02:26 | NUR ---
Patient does not wish to proceed with medical care recommended by Dr. Guerrero. and RN has given patient information related to possible complications, up to and including , which could occur as a result of leaving the hospital at this time. Patient verbalizes understanding of risks involved due to leaving against medical advice. Patient has signed AMA form and left facility.
[2020-01-20 02:45] VITALS: BP 132/77
== END 2020-01-20 02:26 | disposition left against medical advice (07) ==
LOC: ER 01:56
DX: R10.32 Left lower quadrant pain (principal); R11.10 Vomiting, unspecified; K50.90 Crohn's disease, unspecified, without complications; R19.7 Diarrhea, unspecified; I10 Essential (primary) hypertension; F11.20 Opioid dependence, uncomplicated; G89.4 Chronic pain syndrome; Z86.718 Personal history of other venous thrombosis and embolism; E11.9 Type 2 diabetes mellitus without complications; Z79.4 Long term (current) use of insulin; R00.0 Tachycardia, unspecified
CPT/HCPCS: 93005; A4663

== ENCOUNTER 2020-03-12 01:49 | Emergency (ER) | payer BC ==
[~2020-03-12] VITALS: Ht 182.9 cm; Wt 108.9 kg
[2020-03-12] MEDS ORDERED: ONDANSETRON 4 MG/2 ML VIAL IV ONE (02:45)
[2020-03-12] MEDS ORDERED: IV NORMAL SALINE 1000 ML BAG IV ONE (02:45)
[2020-03-12] MEDS ORDERED: HYDROMORPHONE 1 MG/1 ML DISP.SYRIN IV ONE (02:45)
[2020-03-12] MEDS ORDERED: ONDANSETRON 4 MG/2 ML VIAL ONE (03:01)
[2020-03-12] MEDS ORDERED: HYDROMORPHONE 2 MG/1 ML DISP.SYRIN ONE (03:01)
[2020-03-12] MEDS ORDERED: diphenhydrAMINE 50 MG/1 ML VIAL ONE (03:09)
[2020-03-12] MEDS ORDERED: diphenhydrAMINE 50 MG/1 ML VIAL IV ONE (03:15)
--- NOTE | 2020-03-12 04:15 | NUR ---
IV removed. Catheter intact and site benign. Pressure and 4x4 gauze applied to site. No bleeding noted.
--- NOTE | 2020-03-12 04:16 | NUR ---
Patient discharged to home in stable condition. Written and verbal after care instructions given. Patient verbalizes understanding of instructions. Stressed follow up or return to ER for worsening s/s. Pt walked out of ER in stable condition. Pt is taking an Uber home.
[2020-03-12 04:17] VITALS: BP 128/84
== END 2020-03-12 04:18 | disposition home or self-care (01) ==
LOC: ER 01:52
DX: R10.32 Left lower quadrant pain (principal); G89.4 Chronic pain syndrome; K50.90 Crohn's disease, unspecified, without complications; E11.9 Type 2 diabetes mellitus without complications; Z79.4 Long term (current) use of insulin
CPT/HCPCS: 82962; 96361; 96374; 96375; 99284; J1170; J1200; J2405; A4663; J7030

== ENCOUNTER 2020-08-31 12:42 | Inpatient (IN) | payer BC ==
[~2020-08-31] VITALS: Ht 182.9 cm; Wt 98.9 kg
--- NOTE | 2020-08-31 12:59 | NUR ---
ERMD at bedside for MSE
[2020-08-31] MEDS ORDERED: ONDANSETRON 4 MG/2 ML VIAL ONE (13:09)
[2020-08-31] MEDS ORDERED: HYDROMORPHONE 1 MG/1 ML DISP.SYRIN ONE ×2 (13:09→14:43)
[2020-08-31] MEDS ORDERED: FAMOTIDINE. 20 MG/2 ML VIAL IV ONE ×2 (13:09→13:15)
[2020-08-31] MEDS ORDERED: IV NORMAL SALINE 1000 ML BAG IV ONE (13:15)
[2020-08-31] MEDS ORDERED: ONDANSETRON 4 MG/2 ML VIAL IV ONE (13:15)
[2020-08-31] MEDS ORDERED: HYDROMORPHONE 1 MG/1 ML DISP.SYRIN IV ONE ×2 (13:15→15:00)
[2020-08-31 13:27] LABS: BASOPHILS # (AUTO) 0.1 K/uL (0.0-8.0); BASOPHILS % (AUTO) 1.3 % (0.0-2.0); EOSINOPHILS % (AUTO) 0.8 % (0.0-7.0); HEMATOCRIT 23.5 % (36.7-47.1); HEMOGLOBIN 7.6 g/dL (12.5-16.3); LYMPHOCYTES # (AUTO) 1.7 K/uL (20.0-40.0); LYMPHOCYTES % (AUTO) 39.2 % (20.5-51.5); MEAN CORPUSCULAR HEMOGLOBIN 26.9 uug (23.8-33.4); MEAN CORPUSCULAR HGB CONC 33 g/dL (32.5-36.3); MEAN CORPUSCULAR VOLUME 82.8 fL (73.0-96.2); MONOCYTES # (AUTO) 0.5 K/uL (2.0-10.0); MONOCYTES % (AUTO) 11.2 % (0.0-11.0); NEUTROPHILS % (AUTO) 47.5 % (38.5-71.5); PLATELET COUNT (AUTO) 335 K/uL (152-348); RED BLOOD CELL COUNT(AUTO) 2.84 MIL/uL (4.06-5.63); WHITE BLOOD COUNT (AUTO) 4.3 K/uL (3.6-10.2)
[2020-08-31 13:39] LABS: ALANINE AMINOTRANSFERASE 12 U/L (16-63); ALKALINE PHOSPHATASE 54 U/L (50-136); ASPARTATE AMINOTRANSFERASE 9 U/L (15-37); BILIRUBIN,DIRECT < 0.1 mg/dL (0.0-0.2); BILIRUBIN,TOTAL 0.2 mg/dL (0.2-1.0); CARBON DIOXIDE 19 mmol/L (21-32); CHLORIDE 109 mmol/L (98-107); CREATININE 1.1 mg/dL (0.6-1.3); GLUCOSE 94 mg/dL (74-106); TOTAL PROTEIN, SERUM 5.8 g/dL (6.4-8.2); UREA NITROGEN, BLOOD 15 mg/dL (7-18)
[2020-08-31 13:45] LABS: POTASSIUM 2.5 mmol/L (3.5-5.1)
[2020-08-31] MEDS ORDERED: INSU100V37 SQ (13:53)
[2020-08-31] MEDS ORDERED: PANT40TA2 PO (13:53)
[2020-08-31] MEDS ORDERED: POTA20TA83 PO (13:53)
[2020-08-31] MEDS ORDERED: DOXY100V2 IV (13:53)
[2020-08-31] MEDS ORDERED: IV 1/2 NS + KCL 20 MEQ BAG 1,000 ML IV ONE (14:00)
--- NOTE | 2020-08-31 14:18 | NUR ---
COVID swab sent to lab.
--- NOTE | 2020-08-31 14:30 | NUR ---
Dr. Ruggiero (GI) has been contacted, and has discussed patient case with TRANG, Dr. Wei.
[2020-08-31] MEDS ORDERED: VALG450T PO (14:51)
[2020-08-31] MEDS ORDERED: CLON0.1T PO (14:52)
--- NOTE | 2020-08-31 14:54 | NUR ---
Dr. Ramírez has accepted the patient.
[2020-08-31] MEDS ORDERED: DOCUSATE SODIUM 100 MG CAPSULE PO PRN (15:15)
--- NOTE | 2020-08-31 15:15 | NUR ---
Received patient on [place]ston from ER. No sign of distress noted at this time. Patient reports pain level of 8/10. He also reports that his pain is never less than a 6/10. Patient has a PICC line on the left upper extremity, flushed both lumens they are intact and patent. Safety precautions are in place with call light and belongings within reach. Will continue to monitor.
[2020-08-31] MEDS ORDERED: ONDANSETRON 4 MG/2 ML VIAL IV PRN (15:30)
[2020-08-31] MEDS ORDERED: MAGNESIUM HYDROXIDE 30 ML LIQUID UDC PO PRN (15:30)
[2020-08-31] MEDS ORDERED: Z GUARD REMEDY PASTE 57 GM TUBE TOP PRN (15:30)
[2020-08-31] MEDS ORDERED: DEXTROSE 50% 50 ML DISP.SYRIN IV PRN (15:30)
[2020-08-31] MEDS ORDERED: ACETAMINOPHEN 325 MG TABLET PO PRN (15:30)
--- NOTE | 2020-08-31 15:54 | NUR ---
Report given to JUANY Adame. Patient transported to [facility] in stable condition.
[2020-08-31 16:00] VITALS: BP 129/83
[2020-08-31] MEDS: HYDROMORPHONE 2 MG/1 ML DISP.SYRIN IV PRN ×2 (16:07→20:16)
[2020-08-31] MEDS: BLOOD SUGAR DIAGNOSTIC 1 EACH STRIP VI SCH ×2 (16:30→20:25)
[2020-08-31] MEDS ORDERED: diphenhydrAMINE 50 MG CAPSULE PO PRN (17:00)
[2020-08-31] MEDS ORDERED: [UNRECOGNIZED DRUG - OTHER] PO SCH (17:00)
[2020-08-31] MEDS: INSULIN REGULAR, HUMAN 300 UNIT/3 ML VIAL SQ PRN (18:27)
--- NOTE | 2020-08-31 18:51 | NUR ---
Patient is resting in bed. No sign of distress noted at this time. Gave all medications as ordered. Safety precautions in place with call light and belongings within reach. Will endorse to oncoming nurse.
--- NOTE | 2020-08-31 19:00 | NUR ---
PATIENT ALERT ORIENTED, CONT ON PAIN MANAGEMENT DUE ABDOMINAL PAIN. PATIENT WITH PICC LINE ON LEFT UPPER ARM, AND CLAIM THAT PICC LINE IS BEEN THERE FOR ONE MONTH. PICC LINE PATENT, DRESSING INTACT. CONT TO MONITOR.
[2020-08-31 19:02] LABS: LIPASE 136 U/L (73-393)
[2020-08-31 20:29] VITALS: BP 153/76
[2020-08-31] MEDS: INSULIN REGULAR, HUMAN 300 UNITS/3 ML VIAL SQ PRN (20:34)
[2020-08-31] MEDS: IV D5 1/2 NS 1000 ML 1,000 ML IV SCH (22:10)
[2020-09-01] MEDS: HYDROMORPHONE 2 MG/1 ML DISP.SYRIN IV PRN ×6 (00:36→20:41)
--- NOTE | 2020-09-01 00:37 | NUR ---
Shira Sterling Web Design Specialist was called due to patient request for Benadryl IV for itching. Web Design Specialist with order.
[2020-09-01] MEDS: diphenhydrAMINE 50 MG/1 ML VIAL IV PRN ×6 (00:42→20:41)
--- NOTE | 2020-09-01 01:46 | NUR ---
PATIENT ALERT ORIENTED, BEEN GIVEN DILAUDID Q4 HRS ORDERED, AND OBTAINED BENADRYL ORDER VIA IV REQUESTED. PATIENT REQUESTING TURKEY SANDWICH, BUT REMINDED PATIENT THAT HE'S ON CLEAR LIQUID DIET, AND DOCTOR'S ORDER. PATIENT WAS KEPT COMFORTABLE MUCH POSSIBLE, ATTEND ALL NEEDS MUCH POSSIBLE, BUT PATIENT TEND TO BE NEEDY. WILL CONT TO MONITOR.
[2020-09-01 05:44] VITALS: BP 149/91
[2020-09-01] MEDS: BLOOD SUGAR DIAGNOSTIC 1 EACH STRIP VI SCH ×4 (06:02→21:14)
[2020-09-01 07:04] LABS: BASOPHILS # (AUTO) 0.1 K/uL (0.0-8.0); BASOPHILS % (AUTO) 1.6 % (0.0-2.0); EOSINOPHILS # (AUTO) 0.1 K/uL (0.0-0.7); EOSINOPHILS % (AUTO) 2.2 % (0.0-7.0); HEMATOCRIT 27.4 % (36.7-47.1); HEMOGLOBIN 9.2 g/dL (12.5-16.3); LYMPHOCYTES # (AUTO) 1.9 K/uL (20.0-40.0); LYMPHOCYTES % (AUTO) 43.5 % (20.5-51.5); MEAN CORPUSCULAR HEMOGLOBIN 27.4 uug (23.8-33.4); MEAN CORPUSCULAR HGB CONC 34 g/dL (32.5-36.3); MEAN CORPUSCULAR VOLUME 81.7 fL (73.0-96.2); MONOCYTES # (AUTO) 0.5 K/uL (2.0-10.0); MONOCYTES % (AUTO) 11.5 % (0.0-11.0); NEUTROPHILS # (AUTO) 1.8 K/uL (1.8-8.9); NEUTROPHILS % (AUTO) 41.2 % (38.5-71.5); PLATELET COUNT (AUTO) 364 K/uL (152-348); RED BLOOD CELL COUNT(AUTO) 3.36 MIL/uL (4.06-5.63); WHITE BLOOD COUNT (AUTO) 4.4 K/uL (3.6-10.2)
[2020-09-01 07:12] LABS: BILIRUBIN,DIRECT 0.1 mg/dL (0.0-0.2); BILIRUBIN,TOTAL 0.5 mg/dL (0.2-1.0); CREATININE 1.1 mg/dL (0.6-1.3); MAGNESIUM 1.8 mg/dL (1.8-2.4); PHOSPHOROUS 3.6 mg/dL (2.5-4.9); POTASSIUM 3.9 mmol/L (3.5-5.1); TOTAL PROTEIN, SERUM 7.2 g/dL (6.4-8.2)
--- NOTE | 2020-09-01 07:30 | NUR ---
Received patient in bed awake, alert and oriented times 4. No sign of distress noted at this time. Safety precautions in place with call light an belongings within reach. Will continue to monitor.
[2020-09-01] MEDS: INSULIN REGULAR, HUMAN 300 UNIT/3 ML VIAL SQ PRN ×3 (08:32→17:45)
[2020-09-01] MEDS: IV D5 1/2 NS 1000 ML 1,000 ML IV SCH ×2 (08:35→17:49)
[2020-09-01 11:06] VITALS: BP 128/69
[2020-09-01 15:40] VITALS: BP 112/67
[2020-09-01] MEDS ORDERED: CLON0.1T PO ×3 (18:40→18:51)
[2020-09-01] MEDS ORDERED: INSU100I24 SQ (18:41)
[2020-09-01] MEDS ORDERED: INSU100V SQ (18:49)
[2020-09-01] MEDS ORDERED: ENOX120D SQ (18:53)
--- NOTE | 2020-09-01 18:55 | NUR ---
Patient is resting comfortably in bed. No sign of distress noted at this time. Gave all medications as ordered. Safety precautions in place with call light and belongings within reach. Will endorse to oncoming nurse.
--- NOTE | 2020-09-01 19:00 | NUR ---
Received patient from AM nurse at this time. Made aware of plan of care and patient status. Safety measures in place. Will continue to monitor and assess.
[2020-09-01 20:21] VITALS: BP 143/87
[2020-09-01] MEDS: INSULIN REGULAR, HUMAN 300 UNITS/3 ML VIAL SQ PRN (21:14)
[2020-09-02] MEDS: diphenhydrAMINE 50 MG/1 ML VIAL IV PRN ×4 (00:43→12:47)
[2020-09-02] MEDS: HYDROMORPHONE 2 MG/1 ML DISP.SYRIN IV PRN ×4 (00:43→12:53)
[2020-09-02] MEDS: IV D5 1/2 NS 1000 ML 1,000 ML IV SCH ×2 (04:03→14:00)
--- NOTE | 2020-09-02 04:09 | NUR ---
Patient continually asks for pain medication before it is due. Asks for 50mg Benadryl when 25mg Benadryl is the prescribed dose. Ordered food from outside when he was told that he has been put on a clear liquid diet. Will continue to monitor and assess.
[2020-09-02 04:21] VITALS: BP 115/51
--- NOTE | 2020-09-02 04:53 | NUR ---
Entered "Un-scheduled administration" for 0043 administration of Benadryl & Dilaudid. EMAR did not save administration. Charge nurse notified.
[2020-09-02] MEDS: BLOOD SUGAR DIAGNOSTIC 1 EACH STRIP VI SCH ×2 (06:45→12:30)
--- NOTE | 2020-09-02 06:46 | NUR ---
Handing patient off to AM nurse. VSS. Bed locked and at lowest position. Afebrile. No distress. Will endorse to oncoming nurse.
[2020-09-02 07:07] LABS: BASOPHILS # (AUTO) 0.1 K/uL (0.0-8.0); BASOPHILS % (AUTO) 1.6 % (0.0-2.0); EOSINOPHILS # (AUTO) 0.1 K/uL (0.0-0.7); HEMATOCRIT 26.5 % (36.7-47.1); HEMOGLOBIN 8.7 g/dL (12.5-16.3); MEAN CORPUSCULAR HEMOGLOBIN 26.7 uug (23.8-33.4); MEAN CORPUSCULAR HGB CONC 33 g/dL (32.5-36.3); MEAN CORPUSCULAR VOLUME 81.5 fL (73.0-96.2); MONOCYTES # (AUTO) 0.6 K/uL (2.0-10.0); MONOCYTES % (AUTO) 12.7 % (0.0-11.0); NEUTROPHILS # (AUTO) 2.2 K/uL (1.8-8.9); NEUTROPHILS % (AUTO) 43.7 % (38.5-71.5); PLATELET COUNT (AUTO) 365 K/uL (152-348); RED BLOOD CELL COUNT(AUTO) 3.26 MIL/uL (4.06-5.63)
[2020-09-02 07:30] LABS: CREATININE 1.2 mg/dL (0.6-1.3); MAGNESIUM 1.8 mg/dL (1.8-2.4); PHOSPHOROUS 3.4 mg/dL (2.5-4.9); POTASSIUM 4.1 mmol/L (3.5-5.1)
--- NOTE | 2020-09-02 07:30 | NUR ---
on bed, resting well. comfortable. seen by dr ingram, made order and carried out
[2020-09-02] MEDS: INSULIN REGULAR, HUMAN 300 UNIT/3 ML VIAL SQ PRN ×2 (07:58→12:42)
--- NOTE | 2020-09-02 11:00 | NUR ---
verbalized ride will be i n by 1300, agreed
[2020-09-02 11:17] VITALS: BP 131/77
--- NOTE | 2020-09-02 14:30 | NUR ---
anxious to go home, refused to take home discharge papers, discussed in the computer. verbalized understanding. left in stable condition with belongings with mother .
--- NOTE | 2020-09-02 14:30 | NUR ---
refused to have picc line removed stated he came with it, from home.
--- NOTE | 2020-09-02 14:30 | NUR ---
tolerated fluids well , no nausea vomiting verbalized.
== END 2020-09-02 14:00 | disposition home or self-care (01) | DRG 377 ==
LOC: ER 12:42 → TELE3 15:10 → MEDSURG3 15:45
PROVIDERS: ADMIT Internal Medicine; ATTEND Internal Medicine
DX: K29.01 Acute gastritis with bleeding (principal); E43 Unspecified severe protein-calorie malnutrition; K50.90 Crohn's disease, unspecified, without complications; F11.20 Opioid dependence, uncomplicated; B25.8 Other cytomegaloviral diseases; A08.39 Other viral enteritis; R00.0 Tachycardia, unspecified; E87.6 Hypokalemia; G89.4 Chronic pain syndrome; E11.65 Type 2 diabetes mellitus with hyperglycemia; Z79.4 Long term (current) use of insulin; Z86.718 Personal history of other venous thrombosis and embolism; Z86.711 Personal history of pulmonary embolism; I10 Essential (primary) hypertension; Z79.899 Other long term (current) drug therapy; E11.43 Type 2 diabetes mellitus with diabetic autonomic (poly)neuropathy; D50.0 Iron deficiency anemia secondary to blood loss (chronic)
CPT/HCPCS: 36415; 71045; 83690; 83735; 84100; 85025; 85730; 86850; 86900; 86901; 93005; A4663; G0378; J1170; J1200; J1815; J2405; J3490; J7030; Q0163